=== PATIENT | male | born 1950 | race Caucasian/White ===

== ENCOUNTER 2017-08-25 18:04 | Emergency (ER) | payer MEDICARE, SELFPAY ==
[2017-08-25 18:05] VITALS: BP 120/77; PULSE 94; RESP 16; TEMP 37.1; O2SAT 98; BMI 24.1
--- NOTE | 2017-08-25 18:18 | ED.RN ---
Pt refused to go back to room after being triaged, stated he needed to go out and smoke. Pt returned approx 15 min later, taken to room at that time.
--- NOTE | 2017-08-25 18:56 | ED.DCSUM_ITS ---
- ER Visit Summary Date of Service: 08/25/17 Chief Complaint: Neck abscess History of Present Illness: The patient is a 67 M with spontaneous onset of a tender swollen area on the right side of his neck about 2 weeks ago, it spontaneously ruptured about 1 week ago has been draining pus ever since. He saw his doctor at the [facility] yesterday, and yesterday, was started on Bactrim. Cultures were taken but no other intervention was performed in the office, culture returned showing group A strep heavy growth; gram-positive cocci moderate growth. He was called by his doctor advised to go to the ER for a different antibiotic prescription. He denies any fevers or systemic symptoms. He has a history of psoriasis and is on Humira, but took his last dose about 5 or 6 weeks ago and has had none since. Physical Examination: Well-appearing in no distress, normal vital signs, afebrile. Ambulatory. Full range of motion of the neck without difficulty. There is a fairly large abscess about 6 cm in diameter on the right posterior aspect of his mid neck, and it is open in an area more superior than centrally, draining purulent material actively. It is erythematous and tender. No subcutaneous emphysema palpable. Test Results: n/a Emergency Department Course and Treatment: Patient was amenable to full incision and drainage. After locally anesthetizing with 8 cc of plain 1% lidocaine, I removed a large purulent plug from the area that was opened, revealing a decent sized hole about 1 cm in diameter. I probed and deloculated the entire area, and irrigated it with 120 cc of saline. It was a large cavity , so I packed it with quarter inch sterile gauze and dressed with bacitracin. I advised that he remove this in 48 hours or so. He is welcome to return for worsening. Otherwise follow-up with PCP for wound reevaluation. He was given Ancef 1 g IM here Treatment Plan: Keflex 500 mg 4 times daily ?10 days, continue Bactrim as prescribed since I do not know if the gram-positive cocci that are moderate in growth are in clusters or chains, advised to follow-up with PCP regarding final culture and sensitivity results. Disposition: Discharge home Impression: Right neck cutaneous abscess Complex incision and drainage This note was generated with [employer] dictation software. It may contain incorrect words, spelling, and punctuation that were not noted in review of the chart prior to signing ED Disposition - Plan for ED Patient: Disposition: Home or Assisted Living Chief Complaint: Abscess Instructions: ED Abscess IandD Prescriptions: Cephalexin [Keflex] 500 mg PO Q6 #40 cap [facility] [Primary [facility] Provider] - 3-5 Days Additional Instructions: Remove packing and discard in approximately 2 days. Continue to change dressing as needed as it gets dirty/soaked. Redressed with antibiotic ointment. Take both antibiotics as prescribed until finished. [facility] regarding final culture results and sensitivities, which are not back yet.
== END 2017-08-25 21:16 | disposition home or self-care (01) ==
PROVIDERS: Emergency Provider Emergency Medicine
DX: L02.11 Cutaneous abscess of neck (principal); B95.0 Streptococcus, group A, as the cause of diseases classified elsewhere; L40.9 Psoriasis, unspecified; Z79.899 Other long term (current) drug therapy; Z72.0 Tobacco use
CPT/HCPCS: 10060; 99282

== ENCOUNTER 2017-12-23 13:52 | Emergency (ER) | payer MEDICARE, SELFPAY ==
[2017-12-23 13:53] VITALS: BP 150/98; PULSE 94; RESP 18; TEMP 36.5; O2SAT 96; BMI 24.1
[2017-12-23] MEDS: LORazepam 1 MG Tablet PO (14:43)
--- NOTE | 2017-12-23 15:00 | ED.VISSUMM ---
- ER Visit Summary Date of Service: 12/23/17 Chief Complaint: [] alcohol Abuse History of Present Illness: The patient is a 67 M [] history of alcohol abuse for years [facility], he indicates he drinks about 18 beers a day just had a few drinks before coming to the emergency department, indicates she spoke with the [facility] and he is scheduled to go through your detox system and be detoxed on Monday however he does not wish to wait that long so he came to [facility] seeking detox options. No fever no cough no chest pain no paresthesias he denies any other complaints or symptoms no homicidal suicidal ideation lives alone at home Physical Examination: [] Vital signs are within normal range she is awake and alert there is no obvious signs of gross intoxication his mental status is normal he can answer questions appropriately his speech is normal his neck is supple his lungs are clear heart tones are normal the abdomen soft nontender upper lower extremities remarkable full range of motion there is no tremor no mental cloudiness awake and alert is awake and alert walking around the department in no distress Test Results: [] Emergency Department Course and Treatment: [] Conversation with the patient and he expressed frustration at the [facility] for making him wait till Monday I explained to him that I had no authority over the [facility] if that was the soonest he could get a detox bed he would need to have those conversations with the [facility] we discussed inpatient options elsewhere he has to [facility] insurance and per our administrative staff he would require transfer to that facility, however he declined that he did not wish to be transferred, he was agreeable to going home and calling the [facility] for further detox options otherwise follow with up with them on Monday he was given 1 mg of Ativan p.o. here Treatment Plan: [] Disposition: [] Home stable refused transfer to [facility] Impression: [] Alcohol abuse seeking detox options This note was generated with [employer] dictation software. It may contain incorrect words, spelling, and punctuation that were not noted in review of the chart prior to signing ED Disposition - Plan for ED Patient: Chief Complaint: ETOH Intox Instructions: ED Alcohol Intoxication, ED Alcohol Abuse Referrals: [facility] [Primary Care Provider] - Additional Instructions: Call the [facility] to discuss detox options
--- NOTE | 2017-12-23 15:03 | ED.DCSUM_ITS ---
- ER Visit Summary Date of Service: 12/23/17 Chief Complaint: [] alcohol Abuse History of Present Illness: The patient is a 67 M [] history of alcohol abuse for years he [facility], he indicates he drinks about 18 beers a day just had a few drinks before coming to the emergency department, indicates she spoke with the [facility] and he is scheduled to go through your detox system and be detoxed on Monday however he does not wish to wait that long so he came to [facility] seeking detox options. No fever no cough no chest pain no paresthesias he denies any other complaints or symptoms no homicidal suicidal ideation lives alone at home Physical Examination: [] Vital signs are within normal range she is awake and alert there is no obvious signs of gross intoxication his mental status is normal he can answer questions appropriately his speech is normal his neck is supple his lungs are clear heart tones are normal the abdomen soft nontender upper lower extremities remarkable full range of motion there is no tremor no mental cloudiness awake and alert is awake and alert walking around the department in no distress Test Results: [] Emergency Department Course and Treatment: [] Conversation with the patient and he expressed frustration at the [facility] for making him wait till Monday I explained to him that I had no authority over the [facility] if that was the soonest he could get a detox bed he would need to have those conversations with the [facility] we discussed inpatient options elsewhere he has to [facility] insurance and per our administrative staff he would require transfer to that facility, however he declined that he did not wish to be transferred, he was agreeable to going home and calling the [facility] for further detox options otherwise follow with up with them on Monday he was given 1 mg of Ativan p.o. here Treatment Plan: [] Disposition: [] Home stable refused transfer to [facility] Impression: [] Alcohol abuse seeking detox options This note was generated with [employer] dictation software. It may contain incorrect words, spelling, and punctuation that were not noted in review of the chart prior to signing ED Disposition - Plan for ED Patient: Chief Complaint: ETOH Intox Instructions: ED Alcohol Intoxication, ED Alcohol Abuse Referrals: [facility] [Primary Care Provider] - Additional Instructions: Call the [facility] to discuss detox options
[2017-12-23 15:21] VITALS: BP 133/91; PULSE 83; RESP 18; O2SAT 98
--- NOTE | 2017-12-23 15:22 | ED.RN ---
states unable to write ativan script for wknd
== END 2017-12-23 15:22 | disposition home or self-care (01) ==
LOC: ED 14:23
PROVIDERS: Emergency Provider Emergency Medicine
DX: F10.10 Alcohol abuse, uncomplicated (principal); Y90.9 Presence of alcohol in blood, level not specified; Z60.2 Problems related to living alone
CPT/HCPCS: 99284

== ENCOUNTER 2019-02-23 17:30 | Inpatient (IN) | payer MEDICARE, OTHER, SELFPAY ==
[2019-02-23] VITALS (8 sets, daily range): BP systolic 109–138; BP diastolic 67–97; PULSE 82–95; RESP 16–22; TEMP 36.6–37.5; O2SAT 95–99; BMI 24.6; BMI 23.7
--- NOTE | 2019-02-23 18:09 | EKG12_ITS ---
Test Reason : Blood Pressure : / mmHG Vent. Rate : 083 BPM Atrial Rate : 083 BPM P-R Int : 166 ms QRS Dur : 082 ms QT Int : 414 ms P-R-T Axes : 058 021 041 degrees QTc Int : 486 ms Sinus rhythm with Premature atrial complexes Prolonged QT Abnormal ECG Confirmed by DOROTHEA STOCKTON, BRADY ([id number]), health editor LYNDSEY MIN ([id number]) on 02/25/2019 11:40:49 AM Referred By: TODD Confirmed By:BRADY PIEDRA MD
--- NOTE | 2019-02-23 18:10 | CT_ITS ---
STUDY: CT ABDOMEN AND PELVIS WITH CONTRAST REASON FOR EXAM: Male, 68 years old. Fall and unresponsive RADIATION DOSAGE (If Supplied By Facility): CTDIvol = ( 13.62 ) mGy, DLP = ( 1096.57 ) mGycm TECHNIQUE: Transaxial images were obtained from the dome of the diaphragm to the symphysis pubis without oral contrast. 100ML IV Isovue 300 was administered. Sagittal and coronal images were reconstructed. Individualized dose optimization techniques were used for this CT. COMPARISON: None. FINDINGS: The visualized lung bases are unremarkable. The visualized portions of the heart are within normal limits. Normal liver. Normal gallbladder and extrahepatic biliary system. Normal spleen. Normal pancreas. Normal bilateral adrenal glands. Normal right kidney. Normal left kidney. Normal visualized stomach. Normal small intestine. There are multiple colonic diverticula consistent with diverticulosis. There is non-visualization of the appendix. Normal abdominal aorta. Normal inferior vena cava. Normal retroperitoneum. Normal urinary bladder. Prostatomegaly and prostate calcifications. Normal abdominal wall. Normal osseous structures. CT/Abdomen/Pelvis WITH Contrast IMPRESSION: No CT evidence of acute injury involving the abdomen or pelvis. Electronically Signed: Papito Ruiz MD at 20:03 EDT Tel , Service support ,
--- NOTE | 2019-02-23 18:10 | CT_ITS ---
STUDY: CT BRAIN WITHOUT CONTRAST REASON FOR EXAM: Male, 68 years old. Agonal breathing after fall. Patient was unresponsive with evidence for closed head injury. RADIATION DOSAGE (If Supplied By Facility): CTDIvol = ( 44.99 ) mGy, DLP = ( 863.60 ) mGycm TECHNIQUE: Transaxial CT imaging of the brain was performed without administration of intravenous contrast material. Multiplanar reformations are submitted for interpretation. Individualized dose optimization techniques were used for this CT. COMPARISON: No relevant priors. FINDINGS: Normal soft tissue structures. Normal calvarium. There is mild cerebral atrophy with widening of the extra-axial spaces and ventricular dilatation. Normal white matter tracts of the cerebral hemispheres. Normal basal ganglia and thalami. Normal brainstem. There is mild cerebellar atrophy. There is no intracranial hemorrhage. There is minimal atherosclerotic calcification of the intracranial arteries. Normal visualized paranasal sinuses. CT/Brain/Head without Contrast IMPRESSION: No CT evidence of acute intracranial hemorrhage. Electronically Signed: Susanna Mason MD at 20:46 EDT , Service support ,
--- NOTE | 2019-02-23 18:10 | CT_ITS ---
STUDY: CT CERVICAL SPINE WITHOUT CONTRAST REASON FOR EXAM: Male, 68 years old. Patient was found unresponsive after fall and closed head injury. RADIATION DOSAGE (If Supplied By Facility): CTDIvol = ( 25.36 ) mGy, DLP = ( 581.20 ) mGycm TECHNIQUE: High resolution transaxial imaging was performed without contrast material. Sagittal and coronal images were reconstructed. Individualized dose optimization techniques were used for this CT. COMPARISON: Prior comparison studies are not available for review at this time. FINDINGS: Normal craniovertebral junction. There are degenerative changes of the anterior atlantoaxial articulation. Normal odontoid process. Normal cervical lordosis. The cervical and imaged thoracic vertebral bodies have normal height and alignment. C2-3: Normal endplates. Normal disc height and morphology. Normal central canal and intervertebral neuroforamina. C3-4: Normal endplates. Normal disc height and morphology. Normal central canal and intervertebral neuroforamina. C4-5: There is narrowing of this disc space with small endplate osteophytes. A small amount of gas in the epidural space. This is probably related to vacuum disc phenomenon. There is severe left-sided neural foraminal narrowing and mild right-sided neural foraminal narrowing with uncovertebral joint hypertrophy. There is no significant central acquired canal stenosis. C5-6: There is narrowing of the disc spaces small endplate osteophytes. There is a disc bulge and osteophyte complex. There is severe bilateral neural foraminal narrowing with uncovertebral facet joint arthropathy, left worse than right. There is mild central acquired canal stenosis. C6-7: There is narrowing of the disc spaces small endplate osteophytes. There is moderate bilateral neural foraminal narrowing with uncovertebral joint hypertrophy. There is mild central acquired canal stenosis. C7-T1: Normal endplates. Normal disc height and morphology. Normal central canal and intervertebral neuroforamina. Normal visualized soft tissue structures. CT/Spine Cervical without Contras IMPRESSION: 1. No CT evidence of acute compression or displaced fracture. 2. Multilevel degenerative disc disease and degenerative arthropathy of the cervical spine with neural foraminal narrowing and acquired canal stenosis, as described. Electronically Signed: Susanna Mason MD at 20:50 EDT , Service support ,
--- NOTE | 2019-02-23 18:13 | NURSING ---
NO OLD EKGS
[2019-02-23] MEDS: MethylPREDNISolone 125 MG/2 ML Vial IV (18:43)
[2019-02-23] MEDS: Diphth,Pertuss(Acell),Tet Vac 0.5 ML Vial IM (18:43)
[2019-02-23] MEDS: DiphenhydrAMINE 50 MG/ML Syringe 25 MG IV (18:43)
[2019-02-23 18:48] LABS: Absolute Neutrophil Count 3.4 X10^3/uL (2.0-7.7); Basophil# 0.04 X10^3/uL; Basophil% 0.8 % (0-1); Eosinophil# 0.05 X10^3/uL; Hematocrit 43.1 % (40-54); Hemoglobin 15.4 g/dL (13.0-16.5); Lymphocyte % 21.1 % (19-41); Mean Corp Hgb Conc 35.7 g/dL (32-36); Mean Corpuscular Volume 92.5 fL (80-94); Mean Platelet Vol. 8.8 fl (6.2-12.0); Monocyte# 0.57 X10^3/uL; Monocyte% 10.9 % (0-10); NRBC Flagged by Analyzer 0 % (0-5); Neutrophil # 3.44 X10^3/uL (2.7-7.7); Neutrophil % 65.8 % (47-70); Platelet Count 248 K/mm3 (150-450); RBC Distribution Width CV 11.9 % (11.6-14.6); RBC Distribution Width SD 40.3 fl (35.1-43.9); Red Blood Count 4.66 M/mm3 (4.6-6.2); White Blood Count 5.2 K/mm3 (4.4-11.0)
[2019-02-23 18:50] LABS: International Normalized Ratio 1.1; Prothrombin Time (Protime)PT. 13.7 SECONDS (11.7-14.9)
[2019-02-23 18:51] LABS: Partial Thromboplast Time 24.8 Seconds (24.1-36.2)
[2019-02-23 19:00] LABS: Anion Gap 8 (5-15); BUN 9 mg/dL (7-18); BUN/Creat Ratio 10.5 RATIO (10-20); Calcium,Total 8.2 mg/dL (8.5-10.1); Chloride 109 mmol/L (98-107); Creatinine, Serum 0.86 mg/dL (0.70-1.30); EST Glomerular Filtration Rate 94 mL/min (>60); Est Glom Filt Rate - Afr Amer 114 mL/min (>60); Glucose 91 mg/dL (74-106); Sodium Level 142 mmol/L (136-145)
[2019-02-23 19:31] LABS: Allen Test POS; Base Excess -9 mmol/L (-2 to +2); Blood Gas Specimen Type ART; O2 Delivery Device Room Air; PO2 90 mmHG (75-100); SITE L Radial; SO2 96 % (95-99); Total Carbon Dioxide 18 mmol/L; pCO2 33.3 mmHg (35-45); pH 7.32 (7.35-7.45)
--- NOTE | 2019-02-23 20:03 | ED.RN ---
TRAM MASON CALLED IN AT THIS TIME. 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 PATIENT LIVES WITH MOTHER AND ONLY CARES FOR HER. TRAM BHAT DID WELFARE CHECK AND MOTHER IS FINE AND WELL TAKEN CARE OF. CONCERN SHE HAS DEMENTIA AND FALLS FREQUENTLY. TRAM BHAT ASKING THAT SOME ONE CALLS EITHER TRAM BHAT OR POLICE TO DO WELFARE CHECK IN AM IF PATIENT IS ADMITTED. SOCIAL WORK TO BE CALLING NEPHEW AT THIS TIME TO SEE IF HE IS CURRENTLY STAYING WITH HER.
--- NOTE | 2019-02-23 20:15 | ED.DCSUM_ITS ---
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 He states he was walking to the store to buy more beer. He states he passed out. When squad arrived he was unresponsive and had agonal breathing. He was placed in a c- collar and backboarded. He has no recall. He does not recall if he had chest pain, shortness of breath, nausea etc. Prior similar symptoms: No Recent Illness/Hospitalization: No - Past Medical History (1) Alcoholism Status: Acute Past Medical History - Allergies and Home Meds Allergies/Adverse Reactions: Allergies iodine Allergy (Verified 02/23/19 17:35) [place] [facility]] - Prior records reviewed: Yes Surgical History: noncontributory Lives: Alone Smoking Status: Current every day smoker Alcohol: Heavy Drugs: None Review of Systems General: Denies: Chills, Fever, Sweats Eyes: Denies: Visual changes - bilaterally, Blurred Vision - bilaterally, Diplopia ENT: Denies: Left ear pain, Right ear pain, Rhinorrhea, Sore throat Cardiovascular: Denies: Chest pain, Palpitations Respiratory: Denies: Dyspnea, Cough, Dyspnea on exertion Gastrointestinal: Denies: Abdominal pain, Nausea, Vomiting, Diarrhea, Melena, Hematochezia Genitourinary: Denies: Dysuria, Hematuria, Frequency Musculoskeletal: Denies: Myalgias, Arthralgias, Neck pain, Back pain, Swelling, Extremity Pain Skin: Reports: Abrasions, Wounds. Denies: Rash, Abscess Neurological: Denies: Headache, Weakness, Numbness Endocrine: Denies: Polyuria Hematologic: Denies: Easy bruising, Easy bleeding Physical Exam Vital Signs/Narrative: Vital Signs Temp Pulse Resp BP Pulse Ox 02/23/19 20:11 85 18 122/67 H 98 02/23/19 19:05 18 02/23/19 18:58 85 20 H 127/97 H 98 02/23/19 17:38 97.8 F 08/24/19 17:31 98.7 F 82 17 109/76 98 Inital Vital Signs reviewed: Yes General: Well nourished, Well developed, No Acute Distress Head: Normocephalic, Trauma, Tenderness - Bridge of nose, - - Clinical findings of basal skull fracture. Eyes: Perrl, EOMI, - - Subconjunctival hemorrhage. Negative for: Pale conjunctiva, Scleral icterus ENT: Moist mucous membranes, No rhinorrhea, TM's clear, - - She does have avulsion of tissue bridge of the nose. There is no laceration or anything that can be repaired.. Negative for: Dry mucous membranes, Nasal congestion, Sinus tenderness Neck: Nontender, No lymphadenopathy, No JVD, - - Remained in collar since he is inebriated Cardiovascular: Regular rate, Regular rhythm, No murmurs, Normal S1, Normal S2 Respiratory: No distress, CTA bilaterally, Chest nontender Abdomen: Soft, Nondistended, Normal bowel sounds, Tender Rectal: Deferred Back: Nontender, Normal Inspection. Negative for: CVA tenderness, Spinal tenderness Extremities: No edema Skin: Normal color, Cyanosis, Trauma. Negative for: Diaphoresis, Jaundice, No Trauma Neurological: Alert, Oriented x3, Cranial nerves II-XII grossly intact, Normal Strength, Normal Sensation, Normal DTR Psychological: Normal affect Diagnostic/Tx/Re-eval Impressions Abdomen/Pelvis CT 02/23/19 18:10 IMPRESSION: No CT evidence of acute injury involving the abdomen or pelvis. Electronically Signed: Papito Ruiz MD at 20:03 EDT Tel , Service support , Brain CT 02/23/19 18:10 IMPRESSION: No CT evidence of acute intracranial hemorrhage. Electronically Signed: Susanna Mason MD at 20:46 EDT , Service support , Cervical Spine CT 02/23/19 18:10 IMPRESSION: 1. No CT evidence of acute compression or displaced fracture. 2. Multilevel degenerative disc disease and degenerative arthropathy of the cervical spine with neural foraminal narrowing and acquired canal stenosis, as described. Electronically Signed: Susanna Mason MD at 20:50 EDT , Service support , 02/23/19 18:10 Abdomen/Pelvis WITH Contrast [CT] Stat Brain/Head without Contrast [CT] Stat Spine Cervical without Contras [CT] Stat Laboratory Results 02/23/19 02/23/19 02/23/19 18:09 18:30 18:30 WBC 5.2 RBC 4.66 Hgb 15.4 Hct 43.1 MCV 92.5 MCH 33.0 H MCHC 35.7 RDW Std Deviation 40.3 RDW Coeff of Rachel 11.9 Plt Count 248 MPV 8.8 Immature Gran % (Auto) 0.400 Neut % (Auto) 65.8 Lymph % (Auto) 21.1 Crittenden % (Auto) 10.9 H Eos % (Auto) 1.0 Baso % (Auto) 0.8 Absolute Neuts (auto) 3.4 Absolute Lymphs (auto) 1.10 Nucleated RBC % 0 PT 13.7 INR 1.1 APTT 24.8 Specimen Type Sample Site pH Bicarbonate Actual POC Total CO2 Base Excess O2 Saturation ABG pCO2 ABG pO2 Xiang Test O2 Delivery Device Blood Gas Notified Whom Sodium Potassium Chloride Carbon Dioxide Anion Gap BUN Creatinine Estim Creat Clear Calc Est GFR (MDRD) Af Amer Est GFR (MDRD) Non-Af BUN/Creatinine Ratio Glucose Calcium Ethyl Alcohol 297.0 02/23/19 02/23/19 18:30 19:24 WBC RBC Hgb Hct MCV MCH MCHC RDW Std Deviation RDW Coeff of Rachel Plt Count MPV Immature Gran % (Auto) Neut % (Auto) Lymph % (Auto) Crittenden % (Auto) Eos % (Auto) Baso % (Auto) Absolute Neuts (auto) Absolute Lymphs (auto) Nucleated RBC % PT INR APTT Specimen Type ART Sample Site L Radial pH 7.32 L Bicarbonate Actual 17.0 L POC Total CO2 18 Base Excess -9 L O2 Saturation 96 ABG pCO2 33.3 L ABG pO2 90 Xiang Test POS O2 Delivery Device Room Air Blood Gas Notified Whom ED Sodium 142 Potassium 4.0 Chloride 109 H Carbon Dioxide 25.0 Anion Gap 8 BUN 9 Creatinine 0.86 Estim Creat Clear Calc 94.20 Est GFR (MDRD) Af Amer 114 Est GFR (MDRD) Non-Af 94 BUN/Creatinine Ratio 10.5 Glucose 91 Calcium 8.2 L Ethyl Alcohol Patient's blood work reveals a metabolic acidosis. CAT scan indicates no intracranial or intra-abdominal pathology. Cervical spine reveals degenerative changes. Patient will require medical admission to evaluate his syncopal episode with agonal breathing. Will contact lab regarding ethanol level. I was informed by Yara, lab personnel, that his alcohol level is 297. Would not expect an alcohol level of 297 to be the cause of his syncope and agonal respirations. - Medical Decision Making Per patient's history he had a syncopal episode with walking. Because he fell hit his face in an inebriated CT of the head was obtained as well as CT of the C-spine. Because he complained of abdominal discomfort to evaluate for hepatic and splenic injury CT of the abdomen and pelvis with IV contrast was obtained. Appropriate blood work was ordered as well. Patient's blood gas reveals a metabolic acidosis with no AA gradient. If there is no intracranial trauma, cervical spine injury or intra-abdominal injury will contact hospitalist for medical admission for syncope with respiratory failure Trauma, metabolic and medical work-up was undertaken to determine cause of patient's syncopal episode. Is no evidence of traumatic injury. Hospitalist has been paged for admission. Patient is intoxicated. Patient was reexamined at 210. He has no cervical spine tenderness. Has full active range of motion. He is alert and oriented. His speech is not slurred. Even though he is legally intoxicated clinically he is alert and oriented. - Critical Care Time Critical care time (excluding procedures): 30-74 minutes, Discussing w/Patient &/or Family/Procurement Internship, Discussing w/Consultants, Arranging Admission or Transfer ED Disposition - Plan for ED Patient: Disposition: Acute Care Hospital [facility] Diagnosis: Syncope and collapse, Agonal respiration, Alcohol intoxication, Avulsion of skin of face [facility]errals: [facility] [Primary Care Provider] -
--- NOTE | 2019-02-23 20:30 | CM.ED ---
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 Patient unsure who will be caring for patient mother at this time. Police department did do a wellness check and state that patient mother is doing well at this time, both patient mother and patient home are well kept per police. Patient agreeable to this case management social worker contacting patient nephew, Baldemar. Telephone call to Baldemar. Baldemar stating to now be with patient mother and to be planning to stay with patient mother until patient is ready for discharge. Baldemar stating to also be able to provide transportation to home for patient when patient is discharged. Updated nursing staff on above information. Ben Diego JAVA SOFTWARE ENGINEER, IAN
--- NOTE | 2019-02-23 21:06 | PCM.HP.STD ---
Problem List (1) Alcoholism Status: Chronic (2) Syncope and collapse Status: Acute (3) Agonal respiration Status: Acute (4) Alcohol intoxication Status: Acute (5) Avulsion of skin of face Status: Acute History of Present Illness Date of Admission: 02/23/19 Chief Complaint: syncope and collapse The patient is a 68 year old M with a significant history of alcoholism and psoriasis who presented to the emergency department because of syncope and fall. Reportedly patient was returning from a drive-through after buying some more alcohol/was going to buy some alcohol. He passed out and fell. Per paramedics patient was in agonal respiration. Patient reports that he thinks he passed out because he was drunk. At the emergency department his alcohol level was 297. The emergency department cervical spine CT; brain CT; abdomen and pelvis CT did not show any acute disease . Because patient reported allergy to contrast dye he was pretreated before CT with contrast. Because he sustained lacerations on his face after falling he was given a tetanus shot at the emergency department. Past Medical History Past Medical History (Chronic Problems): Chronic Problems (Last Updated 02/23/19 @ 21:53 by Tanvir Hammonds MD) Alcoholism (Chronic) Medical History: Medical History (Last Reviewed 02/24/19 @ 03:55 by Tanvir Hammonds MD) Alcoholism F10.20 Allergies iodine Allergy (Verified 02/23/19 17:35) Hives Home Medications: Ambulatory Orders Medication Instructions Recorded Apremilast [Otezla] 30 mg PO DAILY 02/23/19 Surgical History: appendectomy, tonsillectomy Lives: Alone Smoking Status: Current every day smoker Alcohol: Heavy Drugs: None, Marijuana - *Family History Maternal History Items: - - Denies any maternal medical history Paternal History Items: - - Denies any pertinent medical history Review of Systems Constitutional: Denies: Chills, Fever, Weight Change HEENT: Reports: Nasal Congestion. Denies: Head Aches, Sinus Congestion, Sinus Drainage Cardiovascular: Denies: Chest Pain, Palpitations Respiratory: Denies: Cough, Shortness of breath at rest, Sputum production Gastrointestinal: Denies: Abdominal Pain, Nausea, Vomiting Genitourinary: Denies: Dysuria Musculoskeletal: Reports: Neck Pain Skin: Denies: Rash, Wounds Neurological: Denies: Numbness, Tingling, Focal weakness Psychiatric: Denies: Anxiety, Depression, Homicidal Ideations, Suicidal Ideations Hematologic/ Lymphatic: Denies: Easy Bruising, Easy Bleeding VTE Information - Inpt Only VTE Present on Admission: No VTE Mechan Device Prophylaxis: SCD's VTE Pharm Prophylaxis ordered?: No Patient Problems: Active and Suspected Problems (Last Updated 02/23/19 @ 21:53 by Tanvir Hammonds MD) Syncope and collapse (Acute) Agonal respiration (Acute) Alcohol intoxication (Acute) Avulsion of skin of face (Acute) - Physical Exam General: Alert, Oriented x3, Cooperative HEENT: Normocephalic, - - Laceration on nasal bridge and other places of face Neck: Supple, No JVD, Negative Carotid Bruits Lungs: Clear to auscultation, Normal air movement Cardiovascular: Regular rate, No murmurs Abdomen: Bowel Sounds Present, Soft, Non Tender Extremities: No edema, Capillary Refill Less than 3 Seconds Skin: - - Laceration on nasal bridge and on other areas of face Musculoskeletal: No Tenderness to Palpation of Joints or Extremities Neurological: Cranial nerves II-XII grossly intact Psych/Mental Status: Normal Affect, Appropriate Vital Signs Temp Pulse Resp BP Pulse Ox 97.8 F 85 18 122/67 H 98 02/23/19 17:38 02/23/19 20:11 02/23/19 20:11 02/23/19 20:11 02/23/19 20:11 Oxygen Delivery Method Room Air Weight: 84.8 kg Body Mass Index (BMI) 24.6 Intake and Output for Last 24 Hours 02/21/19 02/22/19 02/23/19 23:59 23:59 23:59 Intake Total Balance Laboratory Tests Past 24 Hrs 02/23/19 02/23/19 02/23/19 18:09 18:30 18:30 WBC 5.2 RBC 4.66 Hgb 15.4 Hct 43.1 MCV 92.5 MCH 33.0 H MCHC 35.7 RDW Std Deviation 40.3 RDW Coeff of Rachel 11.9 Plt Count 248 MPV 8.8 Immature Gran % (Auto) 0.400 Neut % (Auto) 65.8 Lymph % (Auto) 21.1 Jessamine % (Auto) 10.9 H Eos % (Auto) 1.0 Baso % (Auto) 0.8 Absolute Neuts (auto) 3.4 Absolute Lymphs (auto) 1.10 Nucleated RBC % 0 PT 13.7 INR 1.1 APTT 24.8 Specimen Type Sample Site pH Bicarbonate Actual POC Total CO2 Base Excess O2 Saturation ABG pCO2 ABG pO2 Xiang Test O2 Delivery Device Blood Gas Notified Whom Sodium Potassium Chloride Carbon Dioxide Anion Gap BUN Creatinine Estim Creat Clear Calc Est GFR (MDRD) Af Amer Est GFR (MDRD) Non-Af BUN/Creatinine Ratio Glucose Calcium Ethyl Alcohol 297.0 02/23/19 02/23/19 18:30 19:24 WBC RBC Hgb Hct MCV MCH MCHC RDW Std Deviation RDW Coeff of Rachel Plt Count MPV Immature Gran % (Auto) Neut % (Auto) Lymph % (Auto) Jessamine % (Auto) Eos % (Auto) Baso % (Auto) Absolute Neuts (auto) Absolute Lymphs (auto) Nucleated RBC % PT INR APTT Specimen Type ART Sample Site L Radial pH 7.32 L Bicarbonate Actual 17.0 L POC Total CO2 18 Base Excess -9 L O2 Saturation 96 ABG pCO2 33.3 L ABG pO2 90 Xiang Test POS O2 Delivery Device Room Air Blood Gas Notified Whom ED Sodium 142 Potassium 4.0 Chloride 109 H Carbon Dioxide 25.0 Anion Gap 8 BUN 9 Creatinine 0.86 Estim Creat Clear Calc 94.20 Est GFR (MDRD) Af Amer 114 Est GFR (MDRD) Non-Af 94 BUN/Creatinine Ratio 10.5 Glucose 91 Calcium 8.2 L Ethyl Alcohol Assessment/Plan All Active Problems (Last Updated 02/23/19 @ 21:53 by Tanvir Hammonds MD) Syncope and collapse (Acute) Agonal respiration (Acute) Alcohol intoxication (Acute) Avulsion of skin of face (Acute) The patient is a 68 year old M with a significant history of alcoholism and psoriasis who presented to the emergency department because of syncope and fall secondary to probable alcoholism. Syncope and collapse Likely secondary to alcohol intoxication Will put patient on telemetry pressure as patient has a prolonged QTC of 486. Check magnesium level. Alcohol dependence and withdrawal Was in the emergency department patient reported that patient began to shake and he feels like he is withdrawing from alcohol. [facility] the [facility] We will put patient on CIWA protocol with thiamine; folic acid; Librium and as needed Ativan. Of note patient has allergy to iodine so multivitamins were not started. Laceration of face Bactroban ordered Nasal congestion Patient reports nasal congestion and is asking for decongestant. Will start patient on Flonase. Psoriasis Otezla Continued Report that previously he was on Humira but because of his drinking habits Humira was stopped. DVT prophylaxis SCD Code Visit Inpatient E&M: 56681 Init Hosp L3
[2019-02-23 21:50] LABS: Bacteria 0 SEEN /hpf (None Seen); Mucous, Urine 0 SEEN /hpf (<or=2+); Red Blood Cells-Urine 0 SEEN /hpf (0-5); White Blood Cells 0 SEEN /hpf (0-5)
[2019-02-23 21:53] LABS: Color, Urine Yellow (Yellow); Glucose, Dipstick Normal (Normal); Ketone-Dipstick 5 mg/dl (Negative); Leukocyte Esterase-Dipstick Negative /ul (Negative); Nitrite-Dipstick Negative (Negative); Occult Blood-Urine Negative /ul (Negative); Protein-Dipstick Negative (Negative); Urine Bilirubin Dipstick Negative (Negative); Urine Clarity Clear (Clear); Urine Urobilinogen Normal (Normal)
[2019-02-23 21:56] LABS: Albumin, Serum 3.8 g/dL (3.2-5.0); Magnesium 2.3 mg/dL (1.6-2.6)
[2019-02-23 22:27] LABS: Squamous Epithelial Cells - UA 0-5 SEEN /hpf (0-5)
[2019-02-24 01:50] VITALS: BP 130/68; PULSE 101; RESP 16; TEMP 37.1; O2SAT 95
[2019-02-24 03:00] VITALS: PULSE 49; PULSE 95
[2019-02-24 05:26] VITALS: BP 165/75; PULSE 73; RESP 16; TEMP 36.9; O2SAT 95
[2019-02-24] MEDS: LORazepam 1 MG Tablet 2 MG PO (05:30)
[2019-02-24 07:05] VITALS: PULSE 94
--- NOTE | 2019-02-24 08:11 | PCM.PN.HOSP ---
Patient Problems: Active and Suspected Problems (Last Reviewed 02/24/19 @ 03:55 by Tanvir Hammonds MD) Syncope and collapse (Acute) Agonal respiration (Acute) Alcohol intoxication (Acute) Avulsion of skin of face (Acute) Subjective: Multiple lacerations to his face. States that he would like to quit drinking. Denies any cardiac history and says that he has had a stress test in the past for what sounds like a PAC which was normal Vitals/I&O's: Vital Signs Temp Pulse Resp BP Pulse Ox 98.4 F 73 16 165/75 H 95 02/24/19 05:26 02/24/19 05:26 02/24/19 05:26 02/24/19 05:26 02/24/19 05:26 Oxygen Delivery Method Room Air Weight: 179 lb 14.355 oz Body Mass Index (BMI) 23.7 Finger Stick Blood Glucose 91 Intake and Output for Last 24 Hours 02/22/19 02/23/19 02/24/19 23:59 23:59 23:59 Intake Total 1021.68 / 1021.68 600 / 600 Balance 1021.68 / 1021.68 600 / 600 General: Alert, Oriented x3, Cooperative, No apparent distress HEENT: PERRLA, EOMI, Normocephalic, - - Multiple facial laceration Oral: Dry Mucosa Neck: Supple, No JVD Lungs: Clear to auscultation, Normal air movement, No rhonchi, No wheeze, No rales Cardiovascular: Regular rate, Regular Rhythm, Normal S1, Normal S2, No murmurs Abdomen: Soft, Non Tender, Non-Distended, No Hepato-splenomegaly Extremities: No edema, Capillary Refill Less than 3 Seconds Skin: No rashes, No breakdown Neurological: Neuro grossly intact, Sensory exam intact to light touch and pain Psych/Mental Status: Normal Affect, Appropriate Laboratory Results 02/23/19 18:09: Ethyl Alcohol 297.0 02/23/19 18:30: WBC 5.2, RBC 4.66, Hgb 15.4, Hct 43.1, MCV 92.5, MCH 33.0 H, MCHC 35.7, RDW Std Deviation 40.3, RDW Coeff of Rachel 11.9, Plt Count 248, MPV 8.8, Immature Gran % (Auto) 0.400, Neut % (Auto) 65.8, Lymph % (Auto) 21.1, Alexander % (Auto) 10.9 H, Eos % (Auto) 1.0, Baso % (Auto) 0.8, Absolute Neuts (auto) 3.4, Absolute Lymphs (auto) 1.10, Nucleated RBC % 0 02/23/19 18:30: PT 13.7, INR 1.1, APTT 24.8 02/23/19 18:30: Sodium 142, Potassium 4.0, Chloride 109 H, Carbon Dioxide 25.0, Anion Gap 8, BUN 9, Creatinine 0.86, Estim Creat Clear Calc 94.20, Est GFR (MDRD) Af Amer 114, Est GFR (MDRD) Non-Af 94, BUN/Creatinine Ratio 10.5, Glucose 91, Calcium 8.2 L 02/23/19 19:24: Specimen Type ART, Sample Site L Radial, pH 7.32 L, Bicarbonate Actual 17.0 L, POC Total CO2 18, Base Excess -9 L, O2 Saturation 96, ABG pCO2 33.3 L, ABG pO2 90, Xiang Test POS, O2 Delivery Device Room Air, Blood Gas Notified Whom ED 02/23/19 21:35: Magnesium 2.3, Albumin 3.8 02/23/19 21:40: Urine Color Yellow, Urine Clarity Clear, Urine pH 5.0, Ur Specific Mc[place] 1.010, Urine Protein Negative, Urine Glucose (UA) Normal, Urine Ketones 5 H, Urine Occult Blood Negative, Urine Nitrite Negative, Urine Bilirubin Negative, Urine Urobilinogen Normal, Ur Leukocyte Esterase Negative, Urine RBC 0 SEEN, Urine WBC 0 SEEN, Ur Squamous Epith Cells 0-5 SEEN, Urine Bacteria 0 SEEN, Urine Mucus 0 SEEN Current Medications Acetaminophen (Tylenol) 650 mg PO Q6H PRN PRN PRN Reason: Mild Pain (scale 0-3)/T>100.7 Fluticasone Propionate (Flonase Nasal [place]) 1 spray NASAL BID [facility] Last Admin: 02/23/19 23:29 Dose: Not Given Documented by: Folic Acid (Folic Acid) 1 mg PO DAILY@0800 [facility] Stop: 02/26/19 08:01 Sodium Chloride () 250 mls @ 15 mls/hr IV .[id number] PRN PRN Reason: SALINE FLUSH Lorazepam (Ativan) 2 mg PO Q2H PRN PRN; Protocol PRN Reason: CIWA score > 8 but <15 Last Admin: 02/24/19 05:30 Dose: 2 mg Documented by: Lorazepam (Ativan) 2 mg PO UD PRN; Protocol PRN Reason: CIWA score >/=15. Lorazepam (Ativan) 2 mg IV Q2H PRN PRN; Protocol PRN Reason: CIWA score > 8 but <15 Lorazepam (Ativan) 2 mg IV UD PRN; Protocol PRN Reason: CIWA score >/=15. Mupirocin (Bactroban) 1 applic TOPICAL BID TIKA; Protocol Ondansetron HCl (Zofran) 4 mg IV Q8H PRN PRN PRN Reason: Nausea Sodium Chloride () 10 - 40 ml IV UD PRN PRN Reason: SALINE FLUSH Thiamine HCl (Vitamin B1) 100 mg PO BIDCM TIKA Stop: 02/26/19 17:01 Medical Necessity - Tobacco Use Smoking Status: Current every day smoker Tobacco Use: Cigarettes Assessment/Plan All Active Problems (Last Reviewed 02/24/19 @ 03:55 by Tanvir Hammonds MD) Syncope and collapse (Acute) Agonal respiration (Acute) Alcohol intoxication (Acute) Avulsion of skin of face (Acute) 1. Alcohol withdrawal/syncope secondary to acute alcohol intoxication with facial trauma -He would like to quit drinking therefore we will continue with alcohol withdrawal protocol -CT scans of his brain, cervical spine, and abdomen and pelvis were all negative for any acute trauma or fracture -Continue with topical Bactroban to the lacerations on his face -Lab work is negative, and telemetry has been unremarkable -He says that he does have a history of a cardiac pre-beat which sounds like a PAC and he says that he had a stress test at the [facility] which was normal. -Since he is likely to be here for multiple nights given his desire to quit drinking, will need to change him from an observation to an inpatient DVT: SCDs Code Visit Inpatient E&M: 14826 Subs Hosp L2
[2019-02-24] MEDS: Thiamine Hydrochloride 100 MG Tablet PO (09:00)
[2019-02-24] MEDS: Folic Acid 1 MG Tablet PO (09:00)
[2019-02-24] MEDS: Fluticasone 0.05% 1 SPRAY NASAL.SRY NASAL (09:00)
[2019-02-24 09:25] VITALS: BP 130/88; PULSE 99; RESP 20; TEMP 36.7; O2SAT 96
[2019-02-24 11:29] VITALS: PULSE 113
--- NOTE | 2019-02-24 12:00 | NURSING ---
patient wanting to be discharged. Contacted Dr. Chavez, but he feels with syncopal episode yesterday and alcohol withdrawal, it is not safe or in patient's best interest to be discharged. Discussed this with patient. Patient wanted option to leave against medical advice. Patient educated on leaving AMA, including that it is not in his best interest to leave and he could easily have an additional medical issues and that insurance may not pay bill. Patient appears unsteady when walking and when discussing this with patient, he states he is fine. Patient is Alert and oriented to person place and time. AMA papers signed by pt with this nurse as witness.
== END 2019-02-24 13:00 | disposition left against medical advice (07) | DRG 894 ==
LOC: ED 21:12 → PCU 22:48
PROVIDERS: Admitting Provider Hospitalist; Emergency Provider Emergency Medicine; Visit Provider Family Medicine
DX: F10.229 Alcohol dependence with intoxication, unspecified (principal); Y90.8 Blood alcohol level of 240 mg/100 ml or more; Z23 Encounter for immunization; S01.21XA Laceration without foreign body of nose, initial encounter; W19.XXXA Unspecified fall, initial encounter; F10.239 Alcohol dependence with withdrawal, unspecified; L40.9 Psoriasis, unspecified; S01.81XA Laceration without foreign body of other part of head, initial encounter; R55 Syncope and collapse
CPT/HCPCS: 36600; 70450; 72125; 74177; 80048; 80320; 81001; 82040; 82803; 83735; 85025; 85610; 85730; 90715; 93005; 99285; 99406; Q9967; A4216; G0480; J3490

== ENCOUNTER 2019-03-17 12:42 | Inpatient (IN) | payer MEDICARE, OTHER, SELFPAY ==
[2019-02-23 21:52] VITALS: BMI 23.7
[2019-03-17] VITALS (8 sets, daily range): BP systolic 120–186; BP diastolic 78–114; PULSE 85–100; RESP 18–20; TEMP 36.6–37.3; O2SAT 95–97; BMI 24.0; BMI 23.3; BMI 23.4
--- NOTE | 2019-03-17 12:51 | ED.RN ---
PT SAID HE STOPPED TAKING OTEZLA APPROX 2 WEEKS AGO.
--- NOTE | 2019-03-17 12:54 | NURSING ---
PT STATED HE HAS DRANK A 6 PACK SNCE 0530 THIS AM
--- NOTE | 2019-03-17 13:05 | ED.DCSUM_ITS ---
History of Present Illness Chief Complaint: Substance Abuse Informant: Patient Onset: Month(s) Maximum Severity: Mild Narrative: Patient has a long history of alcohol abuse indicates is been drinking Budweiser constantly for days he has been drunk for days, he has a history of chronic behavior such as the above he indicates he is chronically drunk, indicates he is tired of being drunk and he came to the hospital today with paramedics request ing that he go undergo alcohol detox, he denies any other past history he denies fever cough chest pain he was seen in the hospital last month he indicates he did not stay for the full detox therapy staying for 1 day only, instead of the 3 days, and he did not follow-up as instructed with outpatient detox services, Indicates he is willing to stay for as long as he takes get himself detoxed and is willing to follow-up with outpatient detox services Past Medical History - Allergies and Home Meds Allergies/Adverse Reactions: Allergies iodine Allergy (Verified 03/17/19 12:47) [place] Primary Care Physician: [place] [Primary [facility] Provider] - Past Medical History: - Surgical History: appendectomy, tonsillectomy Smoking Status: Current every day smoker - Family History Maternal Family History: Reports: - - Denies any maternal medical history Paternal Family History: Reports: - - Denies any pertinent medical history Review of Systems ROS: - As above General: Denies: Chills, Fever, Sweats Eyes: Denies: Visual changes - bilaterally, Diplopia ENT: Denies: Rhinorrhea, Sore throat Cardiovascular: Denies: Chest pain, Palpitations Respiratory: Denies: Dyspnea, Cough, Dyspnea on exertion Gastrointestinal: Denies: Abdominal pain, Nausea, Vomiting, Diarrhea, Melena, Hematochezia Genitourinary: Denies: Dysuria, Hematuria, Frequency Musculoskeletal: Denies: Back pain, Extremity Pain Skin: Denies: Rash, Wounds Neurological: Denies: Headache, Weakness, Numbness Physical Exam Vital Signs/Narrative: Vital Signs Temp Pulse Resp BP Pulse Ox 03/17/19 12:43 97.9 F 99 20 H 186/114 H 96 General: Well nourished, Well developed, No Acute Distress Head: Normocephalic, Atraumatic Eyes: Perrl, EOMI ENT: Moist mucous membranes, No rhinorrhea Neck: Supple, Nontender Cardiovascular: Regular rate, Regular rhythm, No murmurs Respiratory: No distress, CTA bilaterally, Chest nontender Abdomen: Soft, Nontender, Nondistended, Normal bowel sounds Back: Nontender, Normal Inspection Extremities: Nontender, No edema Skin: Normal color, No rash Neurological: Alert, Oriented x3, Cranial nerves II-XII grossly intact, Normal Strength, Normal Sensation Psychological: Normal affect, Normal Mood Diagnostic/Tx/Re-eval - Medical Decision Making Is resting comfortably in the bed he is in no distress has no physical complaints clinically he looks well he does smell of alcohol and seems slightly intoxicated clinically at this time and all the above we spoke with the hospital service they are willing to admit him for alcohol detox and further management, screen labs to be obtained is also been in the chart, he is awake he is alert he is answering questions appropriately with all 4 extremities and he has no complaints there is no signs of psychomotor agitation, no signs of withdrawal at this time and indicates again he was drinking just before the paramedics came Admit stable Impression final alcohol abuse requesting detox ED Disposition - Plan for ED Patient: [facility] -
--- NOTE | 2019-03-17 13:10 | HP.PCM_ITS ---
History of Present Illness Date of Admission: 03/17/19 Chief Complaint: alcohol withdrawal The patient is a 68 year old M [with a PMH of chronic alcohol and nicotine abuse. He was admitted through the ED on 03/17/19 for alcohol withdrawal. He drinks ~ 6-8 cans of 12oz beers daily,a nd says his last drink was ~ a few hours prior to admission. he has been admitted in the past for alcohol withdrawal but signed out AMA. Patient says he is tired of drinking and needs help quitting. On admission, BP was markedly elevated at 186/114, and respiratory rate of 20. Urine tox was negative and serum alcohol is pending. he is being admitted to be managed for acute alcohol withdrawal. ] Past Medical History Past Medical History (Chronic Problems): Chronic Problems (Last Reviewed 02/24/19 @ 03:55 by Tanvir Hammonds MD) Alcoholism (Chronic) Medical History: Medical History (Last Reviewed 02/24/19 @ 03:55 by Tanvir Hammonds MD) Alcoholism F10.20 Allergies iodine Allergy (Verified 03/17/19 12:47) Hives Surgical History: appendectomy, tonsillectomy Lives: With Family Smoking Status: Current every day smoker Tobacco Use: Cigarettes Drugs: Marijuana - *Family History Maternal History Items: - - Denies any maternal medical history Paternal History Items: - - Denies any pertinent medical history Review of Systems Constitutional: Reports: Malaise, Weakness, Fatigue. Denies: Chills, Fever, Weight Change Eyes: Denies: Blurred vision HEENT: Denies: Head Aches, Sinus Congestion, Sinus Drainage Cardiovascular: Denies: Chest Pain, Palpitations Respiratory: Denies: Cough, Shortness of Breath, Shortness of breath at rest, Sputum production Gastrointestinal: Denies: Abdominal Pain, Nausea, Vomiting Genitourinary: Denies: Dysuria Musculoskeletal: Denies: Joint Pain, Joint Tenderness Skin: Denies: Rash, Wounds Neurological: Denies: Numbness, Tingling, Focal weakness Psychiatric: Denies: Anxiety, Depression, Homicidal Ideations, Suicidal Ideations Hematologic/ Lymphatic: Denies: Easy Bruising, Easy Bleeding VTE Information - Inpt Only VTE Present on Admission: No VTE Pharm Prophylaxis ordered?: Yes - Physical Exam General: Alert, Oriented x3, Cooperative, No apparent distress, - - anxious HEENT: Atraumatic, PERRLA, EOMI, Normocephalic Oral: Dry Mucosa Neck: Supple, No JVD, Negative Carotid Bruits Lungs: Clear to auscultation, Normal air movement Cardiovascular: Regular rate, Regular Rhythm, Normal S1, Normal S2, No murmurs Abdomen: Bowel Sounds Present, Soft, Non Tender, Non-Distended, No Hepato- splenomegaly Extremities: No clubbing, No cyanosis, No edema, Capillary Refill Less than 3 Seconds Skin: No rashes, No breakdown Musculoskeletal: No Tenderness to Palpation of Joints or Extremities Lymphatic: No Cervical, Supraclavicular, or Inguinal Adenopathy Neurological: Cranial nerves II-XII grossly intact, Neuro grossly intact, Motor Exam 5/5 strength throughout Psych/Mental Status: Normal Affect, Appropriate, Alert and oriented to time, place, person, mood and affect Vital Signs Temp Pulse Resp BP Pulse Ox 97.9 F 99 20 H 186/114 H 96 03/17/19 12:43 03/17/19 12:43 03/17/19 12:43 03/17/19 12:43 03/17/19 12:43 Oxygen Delivery Method Room Air Weight: 182 lb 8.684 oz Body Mass Index (BMI) 24.0 Finger Stick Blood Glucose 91 Assessment/Plan All Active Problems (Last Reviewed 02/24/19 @ 03:55 by Tanvir Hammonds MD) Syncope and collapse (Acute) Agonal respiration (Acute) Alcohol intoxication (Acute) Avulsion of skin of face (Acute) 68 y/o male admitted for acute alcohol withdrawal 1. Acute alcohol withdrawal * admit to Med Surg with telemetry * urine tox was negative, and serum alcohol is pending * CBC and BMp are unremarkable, will check liver profile * start alcohol withdrawal protocol with ativan * check magnesium * monitor CIWA score * 2. Elevated BP: * no diagnosis of hypertension * BP was in 180s systolic on admission. * Doesnt have a history of hypertension. this may be due to withdrawal process. * IV hydralazine prn. * DVT prophylaxis: encourage ambulation. low risk Code Visit Inpatient E&M: 74978 Init Hosp L3
--- NOTE | 2019-03-17 13:24 | NURSING ---
DR HARTLEY IN ROOM
[2019-03-17 13:27] LABS: Absolute Lymphocyte Count 1.21 X10^3/uL (0.83-4.51); Absolute Neutrophil Count 3.8 X10^3/uL (2.0-7.7); Basophil# 0.02 X10^3/uL; Basophil% 0.4 % (0-1); Eosinophil# 0.01 X10^3/uL; Eosinophils% 0.2 % (0-5); Hematocrit 45.3 % (40-54); Hemoglobin 16.2 g/dL (13.0-16.5); Lymphocyte # 1.21 X10^3/ul (4.0); Lymphocyte % 21.9 % (19-41); Mean Corp Hgb Conc 35.8 g/dL (32-36); Mean Corpuscular Volume 89.5 fL (80-94); Monocyte# 0.43 X10^3/uL; Monocyte% 7.8 % (0-10); NRBC Flagged by Analyzer 0 % (0-5); Neutrophil # 3.84 X10^3/uL (2.7-7.7); Neutrophil % 69.5 % (47-70); Platelet Count 173 K/mm3 (150-450); RBC Distribution Width CV 11.7 % (11.6-14.6); RBC Distribution Width SD 37.9 fl (35.1-43.9); Red Blood Count 5.06 M/mm3 (4.6-6.2); White Blood Count 5.5 K/mm3 (4.4-11.0)
--- NOTE | 2019-03-17 13:27 | NURSING ---
MED SURG ALCOHOL DETOX KOR
[2019-03-17 13:38] LABS: Amphetamine Urine VISTA NEGATIVE (<1000 ng/mL); Barbiturate Urine VISTA NEGATIVE (< 200 ng/mL); Benzodiazepine Urine VISTA NEGATIVE (< 200 ng/mL); Cocaine Urine VISTA NEGATIVE (< 300 ng/mL); Ecstacy Urine VISTA NEGATIVE (< 500 ng/mL); Methadone Urine VISTA NEGATIVE (< 300 ng/mL); PCP Urine VISTA NEGATIVE (< 25 ng/mL); THC Urine VISTA NEGATIVE (< 50 ng/mL); Vista UDS pH Range 6
[2019-03-17 13:39] LABS: Anion Gap 8 (5-15); BUN 7 mg/dL (7-18); BUN/Creat Ratio 8.5 RATIO (10-20); Calcium,Total 8.1 mg/dL (8.5-10.1); Chloride 103 mmol/L (98-107); Creatinine, Serum 0.82 mg/dL (0.70-1.30); EST Glomerular Filtration Rate 99 mL/min (>60); Est Glom Filt Rate - Afr Amer 120 mL/min (>60); Estimated Creatinine Clearance 98.79 ml/min; Glucose 116 mg/dL (74-106); Potassium 3.7 mmol/L (3.5-5.1); Sodium Level 137 mmol/L (136-145)
--- NOTE | 2019-03-17 14:21 | EKG12_ITS ---
Test Reason : Blood Pressure : / mmHG Vent. Rate : 080 BPM Atrial Rate : 080 BPM P-R Int : 178 ms QRS Dur : 098 ms QT Int : 416 ms P-R-T Axes : 040 -17 037 degrees QTc Int : 479 ms Normal sinus rhythm Minimal voltage criteria for LVH, may be normal variant Borderline ECG Confirmed by DOROTHEA STOCKTON, BRADY ([id number]), brands editor GUSTAVO SOSA ([id number]) on 03/18/2019 2:59:06 PM Referred By: Confirmed By:BRADY PIEDRA MD
[2019-03-17 15:11] LABS: Magnesium 2.3 mg/dL (1.6-2.6)
[2019-03-17] MEDS: Thiamine Hydrochloride 100 MG Tablet PO (15:19)
[2019-03-17] MEDS: Folic Acid 1 MG Tablet PO (15:19)
[2019-03-17] MEDS: LORazepam 1 MG Tablet PO ×3 (15:19→23:51)
[2019-03-17] MEDS: LORazepam 1 MG Tablet 2 MG PO (16:37)
--- NOTE | 2019-03-17 17:12 | NURSING ---
Patient's wallet, [facility] care card, talent coordinator, 3 pieces nicotine gum, nasal spray locked in room med drawer.
[2019-03-17] MEDS: 0.9% Normal Saline 1,000 ML 125 ML IV (17:16)
[2019-03-18] VITALS (11 sets, daily range): BP systolic 126–151; BP diastolic 75–96; PULSE 69–104; RESP 14–20; TEMP 36.6–37.4; O2SAT 95–98
[2019-03-18] MEDS: 0.9% Normal Saline 1,000 ML 125 ML IV (01:21)
[2019-03-18] MEDS: LORazepam 1 MG Tablet PO ×5 (03:35→23:26)
[2019-03-18 06:00] LABS: Anion Gap 9 (5-15); BUN 12 mg/dL (7-18); BUN/Creat Ratio 13.1 RATIO (10-20); Chloride 107 mmol/L (98-107); Creatinine, Serum 0.92 mg/dL (0.70-1.30); EST Glomerular Filtration Rate 87 mL/min (>60); Est Glom Filt Rate - Afr Amer 106 mL/min (>60); Estimated Creatinine Clearance 88.05 ml/min; Glucose 101 mg/dL (74-106); Potassium 3.9 mmol/L (3.5-5.1); Sodium Level 142 mmol/L (136-145)
[2019-03-18 06:07] LABS: Absolute Neutrophil Count 3.9 X10^3/uL (2.0-7.7); Basophil# 0.02 X10^3/uL; Basophil% 0.4 % (0-1); Eosinophil# 0.04 X10^3/uL; Eosinophils% 0.8 % (0-5); Hematocrit 42.8 % (40-54); Hemoglobin 14.9 g/dL (13.0-16.5); Lymphocyte % 12.1 % (19-41); Mean Corp Hgb Conc 34.8 g/dL (32-36); Mean Corpuscular Hgb 32.1 pg (27.0-32.0); Mean Corpuscular Volume 92.2 fL (80-94); Mean Platelet Vol. 9.3 fl (6.2-12.0); Monocyte# 0.35 X10^3/uL; NRBC Flagged by Analyzer 0 % (0-5); Neutrophil # 3.94 X10^3/uL (2.7-7.7); Neutrophil % 79.3 % (47-70); POSITIVE DIFFERENTIAL YES; Platelet Count 129 K/mm3 (150-450); RBC Distribution Width CV 11.8 % (11.6-14.6); RBC Distribution Width SD 39.8 fl (35.1-43.9); Red Blood Count 4.64 M/mm3 (4.6-6.2)
[2019-03-18 06:09] LABS: Differential Indicated SCAN CRITERIA MET
[2019-03-18 06:32] LABS: Differential Comment SCANNED
[2019-03-18] MEDS: Fluticasone 0.05% 1 SPRAY NASAL.SRY 2 SPRAY NASAL ×2 (07:58→20:42)
[2019-03-18] MEDS: Multivitamins,Therapeutic Tablet 1 TABLET PO (07:59)
[2019-03-18] MEDS: Folic Acid 1 MG Tablet PO (07:59)
[2019-03-18] MEDS: Thiamine Hydrochloride 100 MG Tablet PO (07:59)
--- NOTE | 2019-03-18 10:35 | PCM.PN.HOSP ---
Subjective: Tremulous today, feels about the same as when he came in. Vitals/I&O's: Vital Signs Temp Pulse Resp BP Pulse Ox 98.8 F 69 14 126/79 H 95 03/18/19 07:47 03/18/19 07:47 03/18/19 07:47 03/18/19 07:47 03/18/19 07:47 Oxygen Delivery Method Room Air Weight: 177 lb 1.6 oz Body Mass Index (BMI) 23.3 Finger Stick Blood Glucose 91 Intake and Output for Last 24 Hours 03/16/19 03/17/19 03/18/19 23:59 23:59 23:59 Intake Total 1947 1244 / 1244 Balance 1947 1244 / 1244 General: Alert, Oriented x3, Cooperative, No apparent distress, - - Tremulous and anxious HEENT: Atraumatic, PERRLA, EOMI, Normocephalic Oral: Dry Mucosa Neck: Supple, No JVD Lungs: Clear to auscultation, Normal air movement, No rhonchi, No wheeze, No rales Cardiovascular: Regular rate, Regular Rhythm, Normal S1, Normal S2, No murmurs Abdomen: Soft, Non Tender, Non-Distended, No Hepato-splenomegaly Extremities: No edema, Capillary Refill Less than 3 Seconds Skin: No rashes, No breakdown Neurological: Neuro grossly intact, Sensory exam intact to light touch and pain Psych/Mental Status: Anxious, Restless Microbiology Past 72 Hours 03/17/19 18:00 Stool C. difficile DNA Amplification - Final Laboratory Results 03/17/19 13:15: WBC 5.5, RBC 5.06, Hgb 16.2, Hct 45.3, MCV 89.5, MCH 32.0, MCHC 35.8, RDW Std Deviation 37.9, RDW Coeff of Rachel 11.7, Plt Count 173, MPV 9.0, Immature Gran % (Auto) 0.200, Neut % (Auto) 69.5, Lymph % (Auto) 21.9, Bates % (Auto) 7.8, Eos % (Auto) 0.2, Baso % (Auto) 0.4, Absolute Neuts (auto) 3.8, Absolute Lymphs (auto) 1.21, Nucleated RBC % 0 03/17/19 13:15: Sodium 137, Potassium 3.7, Chloride 103, Carbon Dioxide 26.0, Anion Gap 8, BUN 7, Creatinine 0.82, Estim Creat Clear Calc 98.79, Est GFR (MDRD) Af Amer 120, Est GFR (MDRD) Non-Af 99, BUN/Creatinine Ratio 8.5 L, Glucose 116 H, Calcium 8.1 L 03/17/19 13:15: Ethyl Alcohol 402.0 H* 03/17/19 13:15: Urine Opiates Screen NEGATIVE, Urine Methadone Screen NEGATIVE, Ur Barbiturates Screen NEGATIVE, Ur Phencyclidine Scrn NEGATIVE, Ur Amphetamines Screen NEGATIVE, U Methamphetamin-MDMA NEGATIVE, U Benzodiazepines Scrn NEGATIVE, Urine Cocaine Screen NEGATIVE, U Cannabinoids Screen NEGATIVE, Ur Drug Screen Comment 03/17/19 13:20: Magnesium 2.3 03/18/19 05:12: WBC 5.0, RBC 4.64, Hgb 14.9, Hct 42.8, MCV 92.2, MCH 32.1 H, MCHC 34.8, RDW Std Deviation 39.8, RDW Coeff of Rachel 11.8, Plt Count 129 L, MPV 9.3, Immature Gran % (Auto) 0.400, Neut % (Auto) 79.3 H, Lymph % (Auto) 12.1 L, Bates % (Auto) 7.0, Eos % (Auto) 0.8, Baso % (Auto) 0.4, Absolute Neuts (auto) 3.9, Absolute Lymphs (auto) 0.60 L, Nucleated RBC % 0, Differential Comment SCANNED 03/18/19 05:12: Sodium 142, Potassium 3.9, Chloride 107, Carbon Dioxide 26.0, Anion Gap 9, BUN 12, Creatinine 0.92, Estim Creat Clear Calc 88.05, Est GFR (MDRD) Af Amer 106, Est GFR (MDRD) Non-Af 87, BUN/Creatinine Ratio 13.1, Glucose 101, Calcium 8.0 L Current Medications Fluticasone Propionate (Flonase Nasal [place]) 2 spray NASAL DAILY [facility] Last Admin: 03/18/19 07:58 Dose: 2 spray Documented by: [facility]) [facility] Stop: 03/19/19 08:01 Last Admin: 09/16/19 07:59 Dose: 1 mg Documented by: Glucagon () 1 mg IM .X1 PRN PRN Reason: Hypoglycemia Hydralazine HCl (Apresoline Iv) 10 mg IV Q6H PRN PRN PRN Reason: BLOOD PRESSURE ELEVATION Sodium Chloride () 250 mls @ 15 mls/hr IV .[id number] PRN PRN Reason: SALINE FLUSH Lorazepam (Ativan) 1 mg PO Q4H TIKA; Taper Stop: 03/20/19 19:59 Last Admin: 03/18/19 08:05 Dose: 1 mg Documented by: Lorazepam (Ativan) 2 mg PO Q2H PRN PRN; Protocol PRN Reason: CIWA score > 8 but <15 Lorazepam (Ativan) 2 mg PO UD PRN; Protocol PRN Reason: CIWA score >/=15. Last Admin: 03/17/19 16:37 Dose: 2 mg Documented by: Lorazepam (Ativan) 2 mg IV Q2H PRN PRN; Protocol PRN Reason: CIWA score > 8 but <15 Lorazepam (Ativan) 2 mg IV UD PRN; Protocol PRN Reason: CIWA score >/=15. Multivitamins (Multivitamin) 1 tablet PO DAILYCM [facility] Last Admin: 03/18/19 07:59 Dose: 1 tablet Documented by: Nicotine (Nicoderm Cq (Pbkc)) 7 mg TRANSDERM. DAILY [facility] Last Admin: 03/18/19 07:59 Dose: 7 mg Documented by: Non-Formulary Medication (Apremilast) 30 mg PO BID [facility] Sodium Chloride () 10 - 40 ml IV UD PRN PRN Reason: SALINE FLUSH Thiamine HCl (Vitamin B1) 100 mg PO DAILYCM [facility] Stop: 03/19/19 08:01 Last Admin: 03/18/19 07:59 Dose: 100 mg Documented by: Medical Necessity - Tobacco Use Smoking Status: Current every day smoker Tobacco Use: Cigarettes Assessment/Plan All Active Problems (Last Reviewed 02/24/19 @ 03:55 by Tanvir Hammonds MD) Syncope and collapse (Acute) Agonal respiration (Acute) Alcohol intoxication (Acute) Avulsion of skin of face (Acute) 1. Acute alcohol withdrawal/elevated BP -No diagnosis of hypertension therefore will not aggressively treat, he did resolve on his own secondary to withdrawal -Continue with alcohol withdrawal protocol -Monitor with CIWA scale DVT: Ambulation Code Visit Inpatient E&M: 44649 Subs Hosp L2
--- NOTE | 2019-03-18 16:45 | CASEMGMT ---
Social Work Spoke with patient about reason for admission - patient admits to alcoholism. Pt recently placed mother in a nursing facility as he was caring for her. Patient states he would like help in recovering. He is involved with the [place] and has complete programs at [place] [place] [facility] prior. Provided patient with alcohol counseling resources. Referrals made to treatment centers. SW will continue to follow. FAUSTINO GriderW
[2019-03-19 04:00] VITALS: BP 152/98; PULSE 81; RESP 16; TEMP 36.8; O2SAT 98
[2019-03-19 04:14] VITALS: PULSE 82
[2019-03-19] MEDS: Fluticasone 0.05% 1 SPRAY NASAL.SRY 2 SPRAY NASAL (05:49)
[2019-03-19] MEDS: LORazepam 1 MG Tablet PO ×3 (05:49→20:56)
[2019-03-19] MEDS: Thiamine Hydrochloride 100 MG Tablet PO (07:50)
[2019-03-19] MEDS: Folic Acid 1 MG Tablet PO (07:50)
[2019-03-19] MEDS: Multivitamins,Therapeutic Tablet 1 TABLET PO (07:50)
[2019-03-19 08:03] VITALS: PULSE 95
--- NOTE | 2019-03-19 08:34 | PN_ITS ---
Subjective: Chief complaint: Follow-up after admission for acute alcohol intoxication/withdrawal. Patient seen and examined. No acute events overnight. He mentioned that level of anxiety and shakiness is getting better. He has been sleeping overnight, no insomnia. He denied abdominal pain, nausea or vomiting. He feels better, blood pressure slightly elevated, other vital signs are stable. - Physical Exam General: Alert, Oriented x3, Cooperative, No apparent distress HEENT: Atraumatic, PERRLA, EOMI, Normocephalic Oral: Moist Mucosa, No Gingival or Mucosal Lesions/ Ulcerations Neck: Supple, No JVD, Negative Carotid Bruits, Trachea Midline, Thyroid Normal Size and Texture Lungs: Clear to auscultation, Normal air movement, No rhonchi, No wheeze, No rales, Diminished Cardiovascular: Regular rate, Regular Rhythm, Normal S1, Normal S2, PMI Normal Abdomen: Bowel Sounds Present, Soft, Non Tender, Non-Distended, No Hepato- splenomegaly Extremities: No clubbing, No cyanosis, No edema Skin: No rashes, No breakdown Lymphatic: No Cervical, Supraclavicular, or Inguinal Adenopathy Neurological: Cranial nerves II-XII grossly intact, Motor Exam 5/5 strength throughout Psych/Mental Status: Normal Affect, Appropriate, Alert and oriented to time, place, person, mood and affect Vital Signs Temp Pulse Resp BP Pulse Ox 98.2 F 82 16 152/98 H 98 03/19/19 04:00 03/19/19 04:14 03/19/19 04:00 03/19/19 04:00 03/19/19 04:00 Oxygen Delivery Method Room Air Weight: 177 lb 1.6 oz Body Mass Index (BMI) 23.3 Finger Stick Blood Glucose 91 Intake and Output for Last 24 Hours 03/17/19 03/18/19 03/19/19 23:59 23:59 23:59 Intake Total 1947 3224 / 3824 900 / 900 Balance 1947 3224 / 3824 900 / 900 Microbiology Past 72 Hours 03/17/19 18:00 C. difficile DNA Amplification - Final Stool Medical Necessity - Tobacco Use Smoking Status: Current every day smoker Tobacco Use: Cigarettes Assessment/Plan All Active Problems (Last Reviewed 02/24/19 @ 03:55 by Tanvir Hammonds MD) Alcohol intoxication (Acute) This is a 68 years old male patient presented to the emergency room requesting admission for acute alcohol intoxication withdrawal for detoxification. #1 acute alcohol intoxication/withdrawal: He is on tapering course of Ativan, on folic acid and thiamine supplement. Symptoms improved. Vital signs are stable except slightly with blood pressure. Denies any more shakiness or restlessness, feeling better. Plan to continue same treatment, DC home tomorrow morning. #2 COPD: Clinically stable, pulse ox is maintained on room air. Plan for albuterol as needed. #3 psoriasis: Stable, continue Otezla. #4 tobacco abuse: Continue NicoDerm patch. #5 DVT prophylaxis: Subcu Lovenox. This note was generated with [employer] dictation software. It may contain incorrect words, spelling, and punctuation that were not noted in checking the note before signing. Code Visit Inpatient E&M: 44367 Subs Hosp L2
[2019-03-19 11:08] VITALS: BP 141/90; PULSE 82; RESP 18; TEMP 36.9; O2SAT 96
[2019-03-19] MEDS: Enoxaparin 30 MG/0.3 ML Syringe SC (11:18)
--- NOTE | 2019-03-19 14:04 | CASEMGMT ---
Social Work Spoke with [facility] for alcohol treatment. Scheduled appointment 04/03/19 at 8:30 am for screening process. Spoke with patient to discuss alcohol treatment appointments. An appointment is scheduled at [facility] for treatment on 03/25 at 9:45 am. Patient will go to [facility] appt and will cancel [facility] appt if he chooses to proceed with [facility]. Appts and comments put into DC summary. Pt voiced no other concerns. FAUSTINO GriderW
[2019-03-19 16:10] VITALS: BP 121/86; PULSE 75; RESP 16; TEMP 37.1; O2SAT 97
[2019-03-19] MEDS: Loperamide 2 MG Capsule PO (16:57)
[2019-03-19 21:00] VITALS: BP 149/82; PULSE 83; RESP 18; TEMP 36.9; O2SAT 98
[2019-03-20 02:59] VITALS: BP 117/72; PULSE 80; RESP 20; TEMP 36.8; O2SAT 97
[2019-03-20] MEDS: LORazepam 1 MG Tablet PO (03:30)
[2019-03-20] MEDS: Enoxaparin 30 MG/0.3 ML Syringe SC (05:42)
[2019-03-20 08:15] VITALS: BP 127/82; PULSE 98; RESP 16; TEMP 37; O2SAT 99
--- NOTE | 2019-03-20 08:20 | PCM.DC ---
- Discharge Diagnoses Current Active Problems: Current Active and Chronic Problems (Last Reviewed 02/24/19 @ 03:55 by Tanvir Hammonds MD) Tobacco abuse (Chronic) COPD (chronic obstructive pulmonary disease) (Chronic) Psoriasis (Chronic) You will use the following diet at home:: Regular Your food should be the consistency of: Regular Discharge Activity: Return to Normal Activity Weight Bearing Status: Full weight bearing Call your doctor if you observe: Fever of 101 or Higher, Shortness of breath, Dizziness, Fainting spells, Chest pain, Increased palpitations (irregular heartbeat), Uncontrolled pain Instructions: Alcoholism: Getting Help, Alcoholism: How to be Part of the Solution, Recovering from Addiction: Continuing with Counseling, Recovering from Addiction: Coping with Relapse Allergies/Adverse Reactions: Allergies iodine Allergy (Verified 03/17/19 12:47) Hives Medications to take at Discharge Apremilast [Otezla] 30 mg PO BID 03/17/19 Fluticasone 0.05% [Flonase Nasal [place]] 1 spray NASAL ACHS PRN 03/19/19 Folic Acid 0.4 mg PO DAILY@0800 #30 tab 03/20/19 Multivitamins,Therapeutic [Multivitamin] 1 tab PO DAILYCM #30 tab 03/20/19 Thiamine HCl [Vitamin B-1] 100 mg PO DAILY #30 tab 03/20/19 The following prescriptions were given: Folic Acid 0.4 mg PO DAILY@0800 #30 tab Transmission Status: Pending to NATHAN BAUTISTA RD Multivitamins,Therapeutic [Multivitamin] 1 tab PO DAILYCM #30 tab Transmission Status: Pending to NATHAN ALLENCee BAUTISTA RD Thiamine HCl [Vitamin B-1] 100 mg PO DAILY #30 tab Transmission Status: Pending to NATHAN ALLENCee BAUTISTA RD Primary Care Physician: [facility] [Primary Care Provider] - Please follow up with your Primary Care Physician in: 2 weeks. Test Results: Test results from this visit will be discussed in further detail at your follow-up appointment, if applicable. Please Follow Up With: TREY,ONE When: Alcohol Treatment [facility]
--- NOTE | 2019-03-20 11:15 | DS.PCM_ITS ---
Discharge Date and Diagnosis Date of Admission: 03/17/19 Date of Discharge: 03/20/19 - Primary Discharge Diagnosis Acute alcohol intoxication/withdrawal. - Secondary Discharge Diagnosis Chronic Problems (Last Reviewed 02/24/19 @ 03:55 by Tanvir Hammonds MD) Tobacco abuse (Chronic) COPD (chronic obstructive pulmonary disease) (Chronic) Psoriasis (Chronic) Alcoholism (Chronic) Hospital Course and Treatment Operations: None Procedures: None Summary of Care Provided: Patient seen and examined on the day of discharge and appeared to be stable to be discharged home. He denies any more shakiness or restlessness. He slept well overnight. His vital signs are stable. The patient is a 68 year old M presented to the emergency room requesting admission for acute alcohol intoxication/withdrawal for detoxification. On admission, blood alcohol level was 402. Urine drug screen was negative. Routine blood work was unremarkable. Patient was admitted to the [facility] floor, started on alcohol withdrawal and detox protocol with tapering course of Ativan, vitamin supplements including folic acid and thiamine as well as multivitamins. In addition, patient complained of shakiness and restlessness as well as malaise and diarrhea. With treatment, patient symptoms improved. He denies any more shakiness or restlessness and he was able to sleep overnight. Patient was counseled to quit drinking and apparently, he is aware alcoholism complications and he is intending to quit drinking. Multivitamins, folate acid and thiamine supplement, started back on his home medications without any changes, plan to sign up with [facility] program as outpatient, recommended follow-up with PCP in 2 weeks. - Physical Exam General: Alert, Oriented x3, Cooperative, No apparent distress HEENT: Atraumatic, PERRLA, EOMI, Normocephalic Oral: Moist Mucosa, No Gingival or Mucosal Lesions/ Ulcerations Neck: Supple, No JVD, Negative Carotid Bruits, Trachea Midline, Thyroid Normal Size and Texture Lungs: Clear to auscultation, Normal air movement, No rhonchi, No wheeze, No rales, Diminished Cardiovascular: Regular rate, Regular Rhythm, Normal S1, Normal S2, PMI Normal Abdomen: Bowel Sounds Present, Soft, Non Tender, Non-Distended, No Hepato- splenomegaly Extremities: No clubbing, No cyanosis, No edema Skin: No rashes, No breakdown Lymphatic: No Cervical, Supraclavicular, or Inguinal Adenopathy Neurological: Cranial nerves II-XII grossly intact, Neuro grossly intact Psych/Mental Status: Normal Affect, Appropriate, Alert and oriented to time, place, person, mood and affect Vital Signs Temp Pulse Resp BP Pulse Ox 98.6 F 98 16 127/82 H 99 03/20/19 08:15 03/20/19 08:15 03/20/19 08:15 03/20/19 08:15 03/20/19 08:15 Oxygen Delivery Method Room Air Weight: 177 lb 1.6 oz Body Mass Index (BMI) 23.3 Finger Stick Blood Glucose 91 Intake and Output for Last 24 Hours 03/18/19 03/19/19 03/20/19 23:59 23:59 23:59 Intake Total 3224 / 3824 900 / 900 880 / 880 Balance 3224 / 3824 900 / 900 880 / 880 Microbiology Past 72 Hours 03/17/19 18:00 C. difficile DNA Amplification - Final Stool Discharge Activity: Return to Normal Activity Weight Bearing Status: Full weight bearing Call your doctor if you observe: Fever of 101 or Higher, Shortness of breath, Dizziness, Fainting spells, Chest pain, Increased palpitations (irregular heartbeat), Uncontrolled pain Home Medications: Medications to take at Discharge Apremilast [Otezla] 30 mg PO BID 03/17/19 Fluticasone 0.05% [Flonase Nasal [place]] 1 spray NASAL ACHS PRN 03/19/19 Folic Acid 0.4 mg PO DAILY@0800 #30 tab 03/20/19 Multivitamins,Therapeutic [Multivitamin] 1 tab PO DAILYCM #30 tab 03/20/19 Thiamine HCl [Vitamin B-1] 100 mg PO DAILY #30 tab 03/20/19 Following Prescrptions Were Given to Patient: Folic Acid 0.4 mg PO DAILY@0800 #30 tab Transmission Status: Received by NATHAN BAUTISTA RD Multivitamins,Therapeutic [Multivitamin] 1 tab PO DAILYCM #30 tab Transmission Status: Received by NATHAN BAUTISTA RD Thiamine HCl [Vitamin B-1] 100 mg PO DAILY #30 tab Transmission Status: Received by NATHAN BAUTISTA RD Primary Care Physician: [facility] [Primary Care Provider] - Please follow up with your Primary Care Physician in: 2 weeks. Please Follow Up With: TREY,ONE When: Alcohol Treatment Please Follow Up With: [facility] When: Alcohol Treatment Patient Instructions: Alcoholism: How to be Part of the Solution, Alcoholism: Getting Help, Recovering from Addiction: Continuing with Counseling, Recovering from Addiction: Coping with Relapse Disposition: Home Minutes spent on discharge:: 26 Patient Condition:: Stable Medical Necessity - Tobacco Use Smoking Status: Current every day smoker Tobacco Use: Cigarettes Meaningful Use Info Meaningful Use Diagnoses (Choose all that apply): None applicable Code Visit Inpatient E&M: 71177 Disch Hosp
== END 2019-03-20 09:11 | disposition home or self-care (01) | DRG 897 ==
LOC: ED 13:08 → MS3 14:14
PROVIDERS: Admitting Provider Student in an Organized Health Care Education/Training Program; Emergency Provider Emergency Medicine; Visit Provider Hospitalist
DX: F10.229 Alcohol dependence with intoxication, unspecified (principal); F10.239 Alcohol dependence with withdrawal, unspecified; J44.9 Chronic obstructive pulmonary disease, unspecified; L40.9 Psoriasis, unspecified; Y90.8 Blood alcohol level of 240 mg/100 ml or more; F17.210 Nicotine dependence, cigarettes, uncomplicated
CPT/HCPCS: 36415; 80048; 80307; 80320; 83735; 85025; 87493; 93005; 97161; 97166; 97530; 97535; 99284; 99406; J7030; J7040; A4216; G0480

== ENCOUNTER 2019-03-26 15:53 | Inpatient (IN) | payer MEDICARE, OTHER, SELFPAY ==
[2019-03-17 14:30] VITALS: BMI 23.3
[2019-03-26 15:55] VITALS: BP 173/102; PULSE 108; RESP 20; TEMP 36.2; O2SAT 98; BMI 23.7
[2019-03-26] MEDS: 0.9% Normal Saline 1,000 ML 150 ML IV (16:50)
--- NOTE | 2019-03-26 16:56 | ED.DCSUM_ITS ---
- ER Visit Summary Date of Service: 03/26/19 Chief Complaint: [Request for detox from alcohol] History of Present Illness: The patient is a 68 M [presents to the emergency department requesting detox from alcohol. Patient states that he is an alcoholic and his public health aide told him that he could not help him until he detox from alcohol. Patient had several visits this month to this emergency department and has been admitted for detox. Patient states his last drink was about an hour ago. Patient states he drank 12 beers today. Patient denies any chest pain or shortness of breath. He denies any headache. He denies any illicit drug use. His recent illness.] Patient tells me he has not eaten in over 1 week. Physical Examination: [HEENT-PERRLA, EOMI. Cranial nerves II through XII grossly intact. TMs clear. Mucous membranes moist. No adenopathy. Cardiovascular-regular rate and rhythm without murmur or ectopy Lungs-clear to auscultation, chest wall stable without crepitus or subcu emphysema Abdomen-normoactive bowel sounds, soft, nontender, no rebound or rigidity, no peritoneal signs. Extremities-intact ?4, normal range of motion, normal pulses, atraumatic] Test Results: [CBC and CMP ordered and pending.] Emergency Department Course and Treatment: [Patient had an IV line established and he was given normal saline.] Treatment Plan: [Admit for detox from alcohol. Case was discussed with hospitalist.] Disposition: [Admit] Impression: [EtOH detox Alcohol intoxication] This note was generated with [employer] dictation software. It may contain incorrect words, spelling, and punctuation that were not noted in review of the chart prior to signing ED Disposition - Plan for ED Patient: [facility]errals: [facility] [Primary Care Provider] -
[2019-03-26 17:06] LABS: Absolute Lymphocyte Count 1.16 X10^3/uL (0.83-4.51); Basophil# 0.02 X10^3/uL; Basophil% 0.5 % (0-1); Eosinophil# 0.02 X10^3/uL; Eosinophils% 0.5 % (0-5); Hematocrit 43.3 % (40-54); Hemoglobin 15.5 g/dL (13.0-16.5); Lymphocyte # 1.16 X10^3/ul (4.0); Lymphocyte % 30.3 % (19-41); Mean Corp Hgb Conc 35.8 g/dL (32-36); Mean Corpuscular Hgb 32.6 pg (27.0-32.0); Monocyte# 0.61 X10^3/uL; Monocyte% 15.9 % (0-10); NRBC Flagged by Analyzer 0 % (0-5); Neutrophil # 1.99 X10^3/uL (2.7-7.7); Platelet Count 128 K/mm3 (150-450); RBC Distribution Width CV 12.5 % (11.6-14.6); RBC Distribution Width SD 41.1 fl (35.1-43.9); Red Blood Count 4.76 M/mm3 (4.6-6.2); White Blood Count 3.8 K/mm3 (4.4-11.0)
[2019-03-26 17:25] LABS: AST(SGOT) 60 U/L (15-37); Alanine Aminotransfer ALT/SGPT 80 U/L (16-61); Albumin, Serum 3.8 g/dL (3.2-5.0); Alkaline Phosphatase 100 U/L (45-117); Anion Gap 6 (5-15); BUN 6 mg/dL (7-18); BUN/Creat Ratio 8.2 RATIO (10-20); Calcium,Total 8.6 mg/dL (8.5-10.1); Chloride 107 mmol/L (98-107); Creatinine, Serum 0.73 mg/dL (0.70-1.30); EST Glomerular Filtration Rate 113 mL/min (>60); Est Glom Filt Rate - Afr Amer 137 mL/min (>60); Estimated Creatinine Clearance 81.01 ml/min; Glucose 93 mg/dL (74-106); Potassium 3.6 mmol/L (3.5-5.1); Protein, Total 7.8 g/dL (6.4-8.2); Sodium Level 142 mmol/L (136-145)
--- NOTE | 2019-03-26 17:32 | HP.PCM_ITS ---
Problem List (1) Alcohol withdrawal Status: Acute (2) Tobacco abuse Status: Chronic (3) COPD (chronic obstructive pulmonary disease) Status: Chronic (4) Psoriasis Status: Chronic (5) Alcoholism Status: Chronic (6) Alcohol intoxication Status: Acute History of Present Illness Date of Admission: 03/26/19 Chief Complaint: Alcohol withdrawal symptoms. The patient is a 68 year old M with recurrent history of alcohol withdrawal admission and ER visits, recent discharge on 03/20 for similar symptoms came to ER for withdrawal symptoms including shakings. Patient was told by his technical maintenance specialist to go to ER for detox. Patient last drink was in afternoon about an hour before coming to ER. He drinks 16 bottles of 12 ounces each beer every day. Patient denies any previous history of seizure, GI bleed. He denies any diarrhea. No chest pain or shortness of breath. He denies any substance use recently, last cocaine use was about more than 10 years ago. As per ER note, he has not eaten in 1 week. [] Past Medical History Past Medical History (Chronic Problems): Chronic Problems (Last Reviewed 02/24/19 @ 03:55 by Tanvir Hammonds MD) Tobacco abuse (Chronic) COPD (chronic obstructive pulmonary disease) (Chronic) Psoriasis (Chronic) Alcoholism (Chronic) Medical History: Medical History (Last Reviewed 02/24/19 @ 03:55 by Tanvir Hammonds MD) Alcoholism F10.20 Allergies iodine Allergy (Verified 03/26/19 15:55) Hives Home Medications: Ambulatory Orders Medication Instructions Recorded Apremilast [Otezla] 30 mg PO BID 03/17/19 Fluticasone 0.05% [Flonase Nasal 1 spray NASAL ACHS PRN 03/19/19 [place]] Folic Acid 0.4 mg PO DAILY@0800 #30 tab 03/20/19 Multivitamins,Therapeutic 1 tab PO DAILYCM #30 tab 03/20/19 [Multivitamin] Thiamine HCl [Vitamin B-1] 100 mg PO DAILY #30 tab 03/20/19 Surgical History: appendectomy, tonsillectomy Smoking Status: Current every day smoker - *Family History Maternal History Items: - - Denies any maternal medical history Paternal History Items: - - Denies any pertinent medical history Review of Systems Constitutional: Reports: Anorexia, Weakness, Fatigue HEENT: Denies: Head Aches, Sinus Congestion, Sinus Drainage Cardiovascular: Denies: Chest Pain, Palpitations Respiratory: Denies: Cough, Shortness of breath at rest, Sputum production Gastrointestinal: Reports: Nausea. Denies: Abdominal Pain, Constipation, Diarrhea, Hematemesis, Hematochezia, Melena, Vomiting Genitourinary: Denies: Dysuria, Frequency, Hematuria Musculoskeletal: Denies: Joint Pain, Joint Tenderness Skin: Denies: Rash, Wounds Neurological: Denies: Numbness, Tingling, Focal weakness Psychiatric: Denies: Anxiety, Depression, Homicidal Ideations, Suicidal Ideations Hematologic/ Lymphatic: Denies: Easy Bruising, Easy Bleeding VTE Information - Inpt Only VTE Present on Admission: No VTE Mechan Device Prophylaxis: None VTE Pharm Prophylaxis ordered?: Yes Patient Problems: Active and Suspected Problems (Last Reviewed 02/24/19 @ 03:55 by Tanvir Hammonds MD) Alcohol withdrawal (Acute) - Physical Exam General: Alert, Oriented x3, Cooperative HEENT: Atraumatic, PERRLA, EOMI, Normocephalic Oral: Dry Mucosa Neck: Supple, No JVD, Negative Carotid Bruits Lungs: Clear to auscultation, No rhonchi, No wheeze, No rales, Diminished - Air entry is diffusely diminished. COPD. Cardiovascular: Regular rate, Regular Rhythm, Normal S1, Normal S2, No murmurs Abdomen: Bowel Sounds Present, Soft, Non Tender, Non-Distended Extremities: No edema, Capillary Refill Less than 3 Seconds Skin: No rashes, No breakdown Musculoskeletal: No Tenderness to Palpation of Joints or Extremities, Arthritic Changes Neurological: Cranial nerves II-XII grossly intact, Deep Tendon Reflexes 2+/4 and Symmetrical, Neuro grossly intact, - - Generalized tremors all over the body. Mainly in hands Psych/Mental Status: Normal Affect, Appropriate Vital Signs Temp Pulse Resp BP Pulse Ox 97.2 F L 108 H 20 H 173/102 H 98 03/26/19 15:55 03/26/19 15:55 03/26/19 15:55 03/26/19 15:55 03/26/19 15:55 Oxygen Delivery Method Room Air Weight: 180 lb Body Mass Index (BMI) 23.7 Finger Stick Blood Glucose 91 Laboratory Tests Past 24 Hrs 03/26/19 03/26/19 03/26/19 16:32 16:45 16:45 WBC 3.8 L RBC 4.76 Hgb 15.5 Hct 43.3 MCV 91.0 MCH 32.6 H MCHC 35.8 RDW Std Deviation 41.1 RDW Coeff of Rachel 12.5 Plt Count 128 L MPV 9.0 Immature Gran % (Auto) 0.800 Neut % (Auto) 52.0 Lymph % (Auto) 30.3 [place] % (Auto) 15.9 H Eos % (Auto) 0.5 Baso % (Auto) 0.5 Absolute Neuts (auto) 2.0 Absolute Lymphs (auto) 1.16 Nucleated RBC % 0 Sodium 142 Potassium 3.6 Chloride 107 Carbon Dioxide 29.0 Anion Gap 6 BUN 6 L Creatinine 0.73 Estim Creat Clear Calc 81.01 Est GFR (MDRD) Af Amer 137 Est GFR (MDRD) Non-Af 113 BUN/Creatinine Ratio 8.2 L Glucose 93 Calcium 8.6 Total Bilirubin 0.50 GGT AST 60 H ALT 80 H Alkaline Phosphatase 100 Total Protein 7.8 Albumin 3.8 Globulin 4.0 Albumin/Globulin Ratio 1.0 Urine Opiates Screen Pending Urine Methadone Screen Pending Ur Barbiturates Screen Pending Ur Phencyclidine Scrn Pending Ur Amphetamines Screen Pending U Methamphetamin-MDMA Pending U Benzodiazepines Scrn Pending Urine Cocaine Screen Pending U Cannabinoids Screen Pending Ur Drug Screen Comment Ethyl Alcohol 03/26/19 03/26/19 17:15 17:15 WBC RBC Hgb Hct MCV MCH MCHC RDW Std Deviation RDW Coeff of Rachel Plt Count MPV Immature Gran % (Auto) Neut % (Auto) Lymph % (Auto) [place] % (Auto) Eos % (Auto) Baso % (Auto) Absolute Neuts (auto) Absolute Lymphs (auto) Nucleated RBC % Sodium Potassium Chloride Carbon Dioxide Anion Gap BUN Creatinine Estim Creat Clear Calc Est GFR (MDRD) Af Amer Est GFR (MDRD) Non-Af BUN/Creatinine Ratio Glucose Calcium Total Bilirubin GGT Pending AST ALT Alkaline Phosphatase Total Protein Albumin Globulin Albumin/Globulin Ratio Urine Opiates Screen Urine Methadone Screen Ur Barbiturates Screen Ur Phencyclidine Scrn Ur Amphetamines Screen U Methamphetamin-MDMA U Benzodiazepines Scrn Urine Cocaine Screen U Cannabinoids Screen Ur Drug Screen Comment Ethyl Alcohol Pending Assessment/Plan All Active Problems (Last Reviewed 02/24/19 @ 03:55 by Tanvir Hammonds MD) Alcohol withdrawal (Acute) Alcohol intoxication (Acute) The patient is a 68 year old M with recurrent history of alcohol withdrawal admission and ER visits, recent discharge on 03/20 for similar symptoms came to ER for withdrawal symptoms including shakings. Patient was told by his technical maintenance specialist to go to ER for detox. Patient last drink was in afternoon about an hour before coming to ER. He drinks 16 bottles of 12 ounces each beer every day. 1. Acute alcohol withdrawal: Patient is being admitted on [facility]. Alcohol level, GGT and urine tox ordered. Previous U tox was negative. Admitted as per the order set of alcohol withdrawal. Monitor CIWA score. Currently K is 3.6. Monitor electrolytes, magnesium and phosphorus. During previous admission, his alcohol level was 400 21U tox was negative. 2. Chronic alcoholic hepatitis: AST and ALT are elevated. 3. Hypertension: Blood pressure was also elevated during last time, systolic 180s. Currently 173/102. Unclear whether it is alcohol withdrawal related or has issues she will hypertension. Mild thrombocytopenia secondary to chronic alcohol use: Platelet count is 128K. DVT prophylaxis: On Lovenox 40 mg subcu daily. Laboratory Results 03/26/19 16:32: Urine Opiates Screen Pending, Urine Methadone Screen Pending, Ur Barbiturates Screen Pending, Ur Phencyclidine Scrn Pending, Ur Amphetamines Screen Pending, U Methamphetamin-MDMA Pending, U Benzodiazepines Scrn Pending, Urine Cocaine Screen Pending, U Cannabinoids Screen Pending, Ur Drug Screen Comment 03/26/19 16:45: WBC 3.8 L, RBC 4.76, Hgb 15.5, Hct 43.3, MCV 91.0, MCH 32.6 H, MCHC 35.8, RDW Std Deviation 41.1, RDW Coeff of Rachel 12.5, Plt Count 128 L, MPV 9.0, Immature Gran % (Auto) 0.800, Neut % (Auto) 52.0, Lymph % (Auto) 30.3, [place] % (Auto) 15.9 H, Eos % (Auto) 0.5, Baso % (Auto) 0.5, Absolute Neuts (auto) 2.0, Absolute Lymphs (auto) 1.16, Nucleated RBC % 0 03/26/19 16:45: Sodium 142, Potassium 3.6, Chloride 107, Carbon Dioxide 29.0, Anion Gap 6, BUN 6 L, Creatinine 0.73, Estim Creat Clear Calc 81.01, Est GFR (MDRD) Af Amer 137, Est GFR (MDRD) Non-Af 113, BUN/Creatinine Ratio 8.2 L, Glucose 93, Calcium 8.6, Total Bilirubin 0.50, AST 60 H, ALT 80 H, Alkaline Phosphatase 100, Total Protein 7.8, Albumin 3.8, Globulin 4.0, Albumin/Globulin Ratio 1.0 03/26/19 17:15: GGT Pending 03/26/19 17:15: Ethyl Alcohol Pending Code Visit Inpatient E&M: 78832 Init Hosp L3
[2019-03-26 17:39] LABS: GGTP 73 U/L (15-85)
[2019-03-26 17:53] LABS: Amphetamine Urine VISTA NEGATIVE (<1000 ng/mL); Barbiturate Urine VISTA NEGATIVE (< 200 ng/mL); Benzodiazepine Urine VISTA NEGATIVE (< 200 ng/mL); Cocaine Urine VISTA NEGATIVE (< 300 ng/mL); Ecstacy Urine VISTA NEGATIVE (< 500 ng/mL); Methadone Urine VISTA NEGATIVE (< 300 ng/mL); PCP Urine VISTA NEGATIVE (< 25 ng/mL); THC Urine VISTA NEGATIVE (< 50 ng/mL); Vista UDS pH Range 6
[2019-03-26 18:20] VITALS: BP 148/96; PULSE 87; RESP 18; TEMP 36.9; O2SAT 97
[2019-03-26 18:21] VITALS: BMI 23.7
[2019-03-26] MEDS: chlordiazePOXIDE 25 MG Capsule PO (18:53)
[2019-03-26] MEDS: 0.9% Normal Saline 1,000 ML 100 ML IV (18:54)
[2019-03-26 19:45] LABS: Prothrombin Time (Protime)PT. 12.8 SECONDS (11.7-14.9)
[2019-03-26 19:55] VITALS: BP 144/93; PULSE 89; RESP 18; TEMP 37; O2SAT 98
[2019-03-26 21:43] VITALS: PULSE 91
[2019-03-26] MEDS: hydrALAZINE 25 MG Tablet PO (21:43)
[2019-03-26] MEDS: traZODone 50 MG Tablet PO (21:43)
[2019-03-27] VITALS (8 sets, daily range): BP systolic 127–155; BP diastolic 74–93; PULSE 60–97; RESP 18; TEMP 36.6–37.4; O2SAT 97–99
[2019-03-27] MEDS: chlordiazePOXIDE 25 MG Capsule PO ×4 (01:29→20:38)
[2019-03-27] MEDS: 0.9% Normal Saline 1,000 ML 100 ML IV (04:57)
[2019-03-27] MEDS: hydrALAZINE 25 MG Tablet PO ×3 (06:02→21:58)
[2019-03-27 06:08] LABS: Absolute Lymphocyte Count 1.19 X10^3/uL (0.83-4.51); Basophil# 0.01 X10^3/uL; Basophil% 0.3 % (0-1); Eosinophil# 0.04 X10^3/uL; Eosinophils% 1.1 % (0-5); Hematocrit 39.8 % (40-54); Hemoglobin 13.6 g/dL (13.0-16.5); Lymphocyte # 1.19 X10^3/ul (4.0); Lymphocyte % 33.1 % (19-41); Mean Corp Hgb Conc 34.2 g/dL (32-36); Mean Corpuscular Hgb 31.7 pg (27.0-32.0); Mean Corpuscular Volume 92.8 fL (80-94); Mean Platelet Vol. 9.7 fl (6.2-12.0); Monocyte# 0.38 X10^3/uL; Monocyte% 10.6 % (0-10); NRBC Flagged by Analyzer 0 % (0-5); Neutrophil # 1.97 X10^3/uL (2.7-7.7); Neutrophil % 54.6 % (47-70); Platelet Count 103 K/mm3 (150-450); RBC Distribution Width CV 12.8 % (11.6-14.6); RBC Distribution Width SD 43.6 fl (35.1-43.9); Red Blood Count 4.29 M/mm3 (4.6-6.2); White Blood Count 3.6 K/mm3 (4.4-11.0)
[2019-03-27 06:26] LABS: Anion Gap 7 (5-15); BUN 7 mg/dL (7-18); BUN/Creat Ratio 10.2 RATIO (10-20); Calcium,Total 8.2 mg/dL (8.5-10.1); Chloride 108 mmol/L (98-107); Creatinine, Serum 0.69 mg/dL (0.70-1.30); EST Glomerular Filtration Rate 122 mL/min (>60); Est Glom Filt Rate - Afr Amer 147 mL/min (>60); Estimated Creatinine Clearance 81.01 ml/min; Glucose 73 mg/dL (74-106); Magnesium 1.9 mg/dL (1.6-2.6); Phosphorus 2.9 mg/dL (2.5-4.9); Sodium Level 140 mmol/L (136-145)
--- NOTE | 2019-03-27 07:08 | PN_ITS ---
Patient Problems: Active and Suspected Problems (Last Reviewed 02/24/19 @ 03:55 by Tanvir Hammonds MD) Alcohol withdrawal (Acute) Subjective: The patient is a 68-year-old male with a past medical history of alcohol dependence, tobacco dependence, COPD and psoriasis who presented to the emergency department at [facility] on 03/26/2019 complaining of shakes. He has had previous admissions to the hospital for ETOH withdrawal. The most recent admission was 03/17/19. He was discharged on 03/20 which is less than 2 weeks ago. He was intoxicated at the last admission with a Blood alcohol of 402. He has signed out AMA in the past when admitted for ETOH withdrawal per the H&P on 03/17/19. He told the ED doc that he had not eaten in a week. Ethyl alcohol level in the emergency department was 315 and the remainder of the tox screen was negative. He had an appt at 180 and missed the appt because he was drunk. [facility] ETOH rehab. In the past he was sent to an inpatient facility in [place] by the [facility] and stage III months. After discharge from that facility he started drinking again after only 3 months. 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 He has not been to AA in at least 10 years. He denies ever having an alcohol withdrawal seizure and also denies history of delirium tremens. He did fall recently when he was intoxicated and he has scratches on both lenses of his glasses and he broke his dentures. Trying to blame his drinking on the fact that other family members have problems and his is upset about this. - Physical Exam General: Alert, Oriented x3, Cooperative, No apparent distress, Well developed, Well nourished, - - mild tremors of the hands HEENT: Atraumatic, PERRLA, EOMI, Normocephalic Oral: Moist Mucosa Neck: Supple, No JVD, Negative Carotid Bruits Lungs: Clear to auscultation, No rhonchi, No wheeze, No rales Cardiovascular: Regular rate, Regular Rhythm, Normal S1, Normal S2, No murmurs, No Ectopic Activity, No rub noted, No Gallop Abdomen: Bowel Sounds Present, Soft, Non Tender, Non-Distended, - - No guarding with palpation Extremities: No clubbing, No cyanosis, No edema, Peripheral Pulses Normal Skin: No rashes Neurological: Cranial nerves II-XII grossly intact, Neuro grossly intact Psych/Mental Status: Normal Affect, Appropriate Vital Signs Temp Pulse Resp BP Pulse Ox 99.3 F H 71 18 129/76 H 97 03/27/19 01:21 03/27/19 06:02 03/27/19 01:21 03/27/19 01:21 03/27/19 01:21 Oxygen Delivery Method Room Air Weight: 180 lb Body Mass Index (BMI) 23.7 Finger Stick Blood Glucose 91 Intake and Output for Last 24 Hours 03/25/19 03/26/19 03/27/19 23:59 23:59 23:59 Intake Total 482 / 482 1168.33 / 1168.33 Balance 482 / 482 1168.33 / 1168.33 Laboratory Tests Past 24 Hrs 03/26/19 03/26/19 03/26/19 16:32 16:45 16:45 WBC 3.8 L RBC 4.76 Hgb 15.5 Hct 43.3 MCV 91.0 MCH 32.6 H MCHC 35.8 RDW Std Deviation 41.1 RDW Coeff of Rachel 12.5 Plt Count 128 L MPV 9.0 Immature Gran % (Auto) 0.800 Neut % (Auto) 52.0 Lymph % (Auto) 30.3 [place] % (Auto) 15.9 H Eos % (Auto) 0.5 Baso % (Auto) 0.5 Absolute Neuts (auto) 2.0 Absolute Lymphs (auto) 1.16 Nucleated RBC % 0 PT INR Sodium 142 Potassium 3.6 Chloride 107 Carbon Dioxide 29.0 Anion Gap 6 BUN 6 L Creatinine 0.73 Estim Creat Clear Calc 81.01 Est GFR (MDRD) Af Amer 137 Est GFR (MDRD) Non-Af 113 BUN/Creatinine Ratio 8.2 L Glucose 93 Calcium 8.6 Phosphorus Magnesium Total Bilirubin 0.50 GGT AST 60 H ALT 80 H Alkaline Phosphatase 100 Total Protein 7.8 Albumin 3.8 Globulin 4.0 Albumin/Globulin Ratio 1.0 Urine Opiates Screen NEGATIVE Urine Methadone Screen NEGATIVE Ur Barbiturates Screen NEGATIVE Ur Phencyclidine Scrn NEGATIVE Ur Amphetamines Screen NEGATIVE U Methamphetamin-MDMA NEGATIVE U Benzodiazepines Scrn NEGATIVE Urine Cocaine Screen NEGATIVE U Cannabinoids Screen NEGATIVE Ur Drug Screen Comment Ethyl Alcohol 03/26/19 03/26/19 03/26/19 17:15 17:15 18:37 WBC RBC Hgb Hct MCV MCH MCHC RDW Std Deviation RDW Coeff of Rachel Plt Count MPV Immature Gran % (Auto) Neut % (Auto) Lymph % (Auto) [place] % (Auto) Eos % (Auto) Baso % (Auto) Absolute Neuts (auto) Absolute Lymphs (auto) Nucleated RBC % PT 12.8 INR 1.0 Sodium Potassium Chloride Carbon Dioxide Anion Gap BUN Creatinine Estim Creat Clear Calc Est GFR (MDRD) Af Amer Est GFR (MDRD) Non-Af BUN/Creatinine Ratio Glucose Calcium Phosphorus Magnesium Total Bilirubin GGT 73 AST ALT Alkaline Phosphatase Total Protein Albumin Globulin Albumin/Globulin Ratio Urine Opiates Screen Urine Methadone Screen Ur Barbiturates Screen Ur Phencyclidine Scrn Ur Amphetamines Screen U Methamphetamin-MDMA U Benzodiazepines Scrn Urine Cocaine Screen U Cannabinoids Screen Ur Drug Screen Comment Ethyl Alcohol 315.0 H* 03/27/19 03/27/19 05:26 05:26 WBC 3.6 L RBC 4.29 L Hgb 13.6 Hct 39.8 L MCV 92.8 MCH 31.7 MCHC 34.2 RDW Std Deviation 43.6 RDW Coeff of Rachel 12.8 Plt Count 103 L MPV 9.7 Immature Gran % (Auto) 0.300 Neut % (Auto) 54.6 Lymph % (Auto) 33.1 [place] % (Auto) 10.6 H Eos % (Auto) 1.1 Baso % (Auto) 0.3 Absolute Neuts (auto) 2.0 Absolute Lymphs (auto) 1.19 Nucleated RBC % 0 PT INR Sodium 140 Potassium 4.0 Chloride 108 H Carbon Dioxide 25.0 Anion Gap 7 BUN 7 Creatinine 0.69 L Estim Creat Clear Calc 81.01 Est GFR (MDRD) Af Amer 147 Est GFR (MDRD) Non-Af 122 BUN/Creatinine Ratio 10.2 Glucose 73 L Calcium 8.2 L Phosphorus 2.9 Magnesium 1.9 Total Bilirubin GGT AST ALT Alkaline Phosphatase Total Protein Albumin Globulin Albumin/Globulin Ratio Urine Opiates Screen Urine Methadone Screen Ur Barbiturates Screen Ur Phencyclidine Scrn Ur Amphetamines Screen U Methamphetamin-MDMA U Benzodiazepines Scrn Urine Cocaine Screen U Cannabinoids Screen Ur Drug Screen Comment Ethyl Alcohol Medical Necessity - Tobacco Use Smoking Status: Current every day smoker Assessment/Plan All Active Problems (Last Reviewed 02/24/19 @ 03:55 by Tanvir Hammonds MD) Alcohol withdrawal (Acute) Alcohol intoxication (Acute) Impressions 1. Alcohol intoxication. Admitted to the hospital for the second time this month requesting detox. Plans on having his box car checker help him stop drinking and make up a program for him. I suspect this is futile and the only hope he has to stop drinking is an inpt residential facility. He drank immediately after leaving the hospital on the last admission. He was informed that we will place him on the alcohol withdrawal protocol at this time but if he does not follow up with the [facility] next week he will be turned away from the ED. D/W the SW in the ED and a plan is being formulated. His nurse, Joana, was in the room for the entire discussion. 2. ETOH dependence 3. Tobacco dependence -smoking cessation was advised. Will prescribe a nicotine patch while he is in the hospital and unable to smoke. 4. COPD 5. Psoriasis -on Otezla 6. DVT prophylaxis with Lovenox Code Visit Inpatient E&M: 01514 Subs Hosp L2
[2019-03-27] MEDS: Multivitamins,Therapeutic Tablet 1 TABLET PO (08:21)
[2019-03-27] MEDS: Thiamine Hydrochloride 100 MG Tablet PO (08:21)
[2019-03-27] MEDS: Folic Acid 1 MG Tablet PO (08:21)
--- NOTE | 2019-03-27 10:34 | CASEMGMT ---
Addendum entered by Nellie Brink 03/27/19 11:02: Per previous notes, pt's appointment with the [facility] is on [facility]/03/2019 at 8:30am Original Note: Social Work Note Pt is at [facility] for alcohol detox. Pt was at [facility] last week for alcohol detox. SW met with pt and introduced self and role at [facility]. Pt is alert and orientated x3. Pt confirms that he is at [facility] for alcohol detox. Pt states that he talked with his Linen Aide yesterday who recommended pt come to [facility] for detox. SW asked pt if he attended appointment with Sonia on 03/25/2019 as this appointment was arranged last week for pt. Pt states he didn't attend appointment. SW asked pt if there was a reason why he didn't attend the appointment. Pt states 'I guess I was too drunk. SW asked pt what led to him drinking once he discharged from [facility]. Pt states well I have a lot of stress. SW asked pt to elaborate on his stress. Pt states that he was taking care of his mom but he had to place her at [facility] and his mom has been at [facility] for a couple of weeks. Pt states that it is costing $6,000 for his mom to be at [facility] per month and his mom's mcc is only around $3,000 a month and pt only makes around $1,200 - 1,300 a month. Pt states I will probably have to sell the house. SW encouraged pt to call [facility] to discuss payment and to ask [facility] about having his mother apply for Medicaid. Pt states he will do so. Pt also states that his brother a year ago and his sister has terminal cancer and won't make it much longer. SW explored these life changes with pt and how those changes can lead to poor coping skills (drinking). SW explored feelings of stress and depression with pt. Pt states that he sometimes feels sad. Pt states that he called the suicide hotline the beginning of this month. Pt states they asked me if I had a plan or how I would do it and I didn't know. Pt states I didn't have a plan. SW asked pt about any current suicidal thoughts/plans/ideations. Pt denied any current suicidal thoughts/plans/ideations. SW asked pt about his support. Pt states that his Linen Aide is good support for him. Pt states that he has nieces and nephew that live close but they are busy. SW asked pt about his goals for himself and his future plans. 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 SW encouraged pt to call the court that he got his divorce through and ask for a copy. Pt states he will do so. SW asked pt about his discharge plans and specifically asked pt if he plans on going to his [facility] Appointment on 04/03/2019 for his initial assessment. Pt states he will attend the appointment and would like to get linked up through the VA for inpatient detox. Pt states that he has been to inpatient detox before stating about 2 years ago he attended a VA agency in [place], [place] and then about a month before that he went to that facility he was in a facility in [place] that the VA linked him up with. Pt states he does well with inpatient detox but once he gets back into the community he doesn't do well. JOHN spoke with pt about when a patient is in inpatient detox, there are people holding him accountable and giving him a schedule to follow and once he is out in the community there isn't really anyone holding him accountable and no schedule. Pt agrees with that that he does better when someone is holding him accountable and when he has a schedule. JOHN encouraged pt to attend the VA meeting on 04/03/2019 and then make sure the VA assists him with community care and support. SW informed pt that if the VA sends him to an inpatient detox facility then to again make sure that facility assists him with community arrangements before he is discharged back to the community. Pt states that he will do so and also states that his Linen Aide is assisting him with coming up with a game plan. JOHN spoke with pt about his Linen Aide being someone who can hold him accountable in the community as pt identified his Linen Aide as being supportive. Pt thanked this worker for speaking with him and denied any additional needs or concerns or resources at this time. Plan: Pt has an appointment with the [facility] on 04/03/2019 to complete initial assessment to get linked up with VA detox services. Pt has goals for himself and denied any current suicidal thoughts/plans/ideations. Nellie Brink SHIFT SUPERINTENDENT CAUSTIC CRESYLATE, GEOSCIENCES ASSOCIATE PROFESSOR
[2019-03-27] MEDS: traZODone 50 MG Tablet PO (22:00)
[2019-03-28] VITALS (7 sets, daily range): BP systolic 110–148; BP diastolic 72–80; PULSE 72–96; RESP 18; TEMP 36.4–37; O2SAT 95–99
[2019-03-28] MEDS: chlordiazePOXIDE 25 MG Capsule PO ×3 (06:37→21:47)
[2019-03-28] MEDS: hydrALAZINE 25 MG Tablet PO ×2 (06:37→13:58)
[2019-03-28] MEDS: Folic Acid 1 MG Tablet PO (08:02)
[2019-03-28] MEDS: Thiamine Hydrochloride 100 MG Tablet PO (08:02)
[2019-03-28] MEDS: Multivitamins,Therapeutic Tablet 1 TABLET PO (08:02)
[2019-03-28] MEDS: Enoxaparin 40 MG/0.4 ML Syringe SC (08:03)
--- NOTE | 2019-03-28 09:55 | PN_ITS ---
Patient Problems: Active and Suspected Problems (Last Reviewed 02/24/19 @ 03:55 by Tanvir Hammonds MD) Alcohol withdrawal (Acute) Subjective: All events of the past 24 hours been reviewed. Afebrile since admission Hemodynamically stable. Good oral intake See was score was a 4 this morning He denies nausea/vomiting. Continues to have tremors of his hands and upper extremities. No diaphoresis. No diarrhea. Has been ambulating in the halls. He though he would go home today because he only has mild tremors.....I explained his withdrawal SX are mild because we are providing him with medication to ease him through alcohol withdrawal. I recommended he complete the 72-hour detox. We discussed Antabuse and he kept changing the subject and told him the VA was going to give him shots. He plans on getting a program for ETOH abstention from his mechanical manufacturing engineer. Objective: PHYSICAL EXAM: GENERAL: alert, oriented X 3, Cooperative, NAD ORAL: moist mucosa, no mucosal lesions NECK: No JVD, supple, trachea midline LUNGS: CTA, symmetric chest expansion HEART: RRR, Normal S1 and S2, no rub, no gallop ABDOMEN: soft, NT, ND, BS present, no guarding with palpation EXTREMITIES: no edema, no cyanosis, no calf tenderness, mild tremors SKIN: No rashes, no breakdown NEUROLOGIC: no focal neurologic deficits PSYCH: appropriate, normal affect, pleasant - Physical Exam Vital Signs Temp Pulse Resp BP Pulse Ox 98 F 72 18 110/76 99 03/28/19 06:38 03/28/19 06:38 03/28/19 06:38 03/28/19 06:38 03/27/19 20:35 Oxygen Delivery Method Room Air Weight: 180 lb Body Mass Index (BMI) 23.7 Finger Stick Blood Glucose 91 Intake and Output for Last 24 Hours 03/26/19 03/27/19 03/28/19 23:59 23:59 23:59 Intake Total 482 / 482 2768.33 / 2768.33 300 / 300 Balance 482 / 482 2768.33 / 2768.33 300 / 300 Medical Necessity - Tobacco Use Smoking Status: Current every day smoker Assessment/Plan All Active Problems (Last Reviewed 02/24/19 @ 03:55 by Tanvir Hammonds MD) Alcohol withdrawal (Acute) Alcohol intoxication (Acute) Impressions 1. Alcohol intoxication. Admitted to the hospital for medical stabilization for ETOH withdrawal for the second time this month. He is very evasive when talking about his plans at [place]. Yesterday he told me that the [facility] is going to arrange for an inpatient alcohol rehab program for him and today he tells me that the [facility] is either going to give him pills or shots to keep him from drinking. He requested to be discharged today but I told him that he needs to complete 72 hours of medical stabilization and he will be discharged after that time. If he leaves prior to this he will need to go AMA. He also knows he will not be admitted a third time to [facility] for medical stabilization for alcohol withdrawal. 2. ETOH dependence 3. Tobacco dependence -smoking cessation was advised. Continue nicotine patch while he is in the hospital and unable to smoke. 4. COPD-lungs are clear to auscultation 5. Psoriasis -on Otezla 6. Leukopenia and thrombocytopenia-more likely than not secondary to toxic effects of EtOH on bone marrow. Recheck CBC in the a.m. 7. Mild transaminitis-CT scan of the abdomen and pelvis done in January 2019 showed a normal-appearing liver. 8. DVT prophylaxis with Lovenox Code Visit Inpatient E&M: 19571 Subs Hosp L2
[2019-03-28] MEDS: hydrOXYzine PAM 25 MG Capsule 50 MG PO (14:03)
[2019-03-28 18:26] LABS: Bedside Glucose 98 mg/dL (70-110)
[2019-03-28] MEDS: traZODone 50 MG Tablet PO (21:47)
[2019-03-29 01:55] VITALS: BP 150/85; PULSE 75; RESP 18; TEMP 36.9; O2SAT 99
[2019-03-29] MEDS: Fluticasone 0.05% 1 SPRAY NASAL.SRY NASAL (03:52)
[2019-03-29 06:14] VITALS: BP 112/66; PULSE 66; RESP 18; TEMP 36.4; O2SAT 97
[2019-03-29 06:19] VITALS: BP 112/66; PULSE 66
[2019-03-29 06:46] LABS: Hematocrit 40.7 % (40-54); Mean Corp Hgb Conc 34.4 g/dL (32-36); Mean Corpuscular Hgb 32.5 pg (27.0-32.0); Mean Corpuscular Volume 94.4 fL (80-94); Mean Platelet Vol. 10.3 fl (6.2-12.0); Platelet Count 108 K/mm3 (150-450); RBC Distribution Width CV 12.4 % (11.6-14.6); RBC Distribution Width SD 43.4 fl (35.1-43.9); Red Blood Count 4.31 M/mm3 (4.6-6.2); White Blood Count 6.5 K/mm3 (4.4-11.0)
[2019-03-29] MEDS: Multivitamins,Therapeutic Tablet 1 TABLET PO (08:40)
[2019-03-29] MEDS: Thiamine Hydrochloride 100 MG Tablet PO (08:40)
[2019-03-29] MEDS: chlordiazePOXIDE 25 MG Capsule PO (08:40)
[2019-03-29] MEDS: Folic Acid 1 MG Tablet PO (08:40)
[2019-03-29 10:17] VITALS: BP 119/72; PULSE 80; RESP 18; TEMP 36.7; O2SAT 99
--- NOTE | 2019-03-29 11:23 | DCINST_ITS ---
- Discharge Diagnoses Current Active Problems: Current Active and Chronic Problems (Last Reviewed 02/24/19 @ 03:55 by Tanvir Hammonds MD) Alcohol withdrawal (Acute) You will use the following diet at home:: No restrictions Your food should be the consistency of: Regular Your liquids should be the consistency of: Regular/Thin Discharge Activity: Return to Normal Activity Call your doctor if you observe: Fever of 101 or Higher, Fainting spells, Calf discomfort, Uncontrolled pain Instructions: Life After Combat: Coping with Alcohol Abuse, Understanding Alcoholism, Alcoholism: Myths and Facts Additional Instructions: 1. I suggest that you talk to your roll forming machine set up operator and [facility] Ask them to make sure that you get to thaT APPT.........EVEN IF YOU HAVE BEEN DRINKING you MUST go to this appt to get the buttermilk drier operator help you need. Stay away from friends who drink. Call your roll forming machine set up operator or a friend if you feel like taking a drink and ask for help. Get rid of ANY alcohol you may have in your house......take away temptation. Take care of yourself. You have done this is the past and stayed dry for 3 month......you can do this. Pending Tests on Discharge: none Allergies/Adverse Reactions: Allergies iodine Allergy (Verified 03/26/19 15:55) Hives Medications to take at Discharge Apremilast [Otezla] 30 mg PO BID 03/17/19 Fluticasone 0.05% [Flonase Nasal [place]] 1 spray NASAL ACHS PRN 03/19/19 Folic Acid 0.4 mg PO DAILY@0800 #30 tab 03/20/19 Multivitamins,Therapeutic [Multivitamin] 1 tab PO DAILYCM #30 tab 03/20/19 Thiamine HCl [Vitamin B-1] 100 mg PO DAILY #30 tab 03/20/19 Nicotine [Nicoderm] 14 mg TRANSDERM. DAILY #28 patch 03/29/19 The following prescriptions were given: Nicotine [Nicoderm] 14 mg TRANSDERM. DAILY #28 patch Prescription Printed Primary Care Physician: [facility] [Primary Care Provider] - Please follow up with your Primary Care Physician in: Apr 04 as scheduled. Test Results: Test results from this visit will be discussed in further detail at your follow- up appointment, if applicable. Proposed Discharge Date: 03/29/19
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
--- NOTE | 2019-04-01 17:26 | CASEMGMT ---
RN JAMARCUS Discharge Follow-Up Phone Call. Lace:??10 Strata: 3 Discharge Date:?03/29/19 Adm Dx:???ETOH W/D Attempted discharge follow-up phone call. No answer. Message left for pt to return call to [facility] RN JAMARCUS if he has any questions about the discharge instructions, medications, or follow-up appts. Phone number provided. Also made aware he can contact through this number as well. Desmond TOMLINSON RN CM
== END 2019-03-29 11:55 | disposition home or self-care (01) | DRG 897 ==
LOC: ED 16:56 → MS3 18:11
PROVIDERS: Admitting Provider Internal Medicine; Emergency Provider Emergency Medicine; Visit Provider Internal Medicine
DX: F10.239 Alcohol dependence with withdrawal, unspecified (principal); J44.9 Chronic obstructive pulmonary disease, unspecified; L40.9 Psoriasis, unspecified; F10.229 Alcohol dependence with intoxication, unspecified; K70.10 Alcoholic hepatitis without ascites; I10 Essential (primary) hypertension; D69.59 Other secondary thrombocytopenia; F17.200 Nicotine dependence, unspecified, uncomplicated; Y90.8 Blood alcohol level of 240 mg/100 ml or more
CPT/HCPCS: 36415; 80048; 80053; 80307; 80320; 82962; 82977; 83735; 84100; 85025; 85027; 85610; 99285; J7030; G0480; J3490

== ENCOUNTER 2019-04-06 18:29 | Emergency (ER) | payer MEDICARE, OTHER, SELFPAY ==
[2019-03-26 18:21] VITALS: BMI 23.7
[2019-04-06 18:30] VITALS: BP 119/77; PULSE 81; RESP 19; TEMP 36.4; O2SAT 97; BMI 25.0
--- NOTE | 2019-04-06 18:50 | ED.VIS.GEN ---
History of Present Illness Chief Complaint: ETOH Intox Informant: Patient Narrative: Patient is a 68-year-old male with history of alcohol abuse presenting with alcohol intoxication. Patient states that he drank 12x16 ounce Budweiser today. He states he is drink that daily for the past week since he was discharged from our hospital. Patient was admitted for alcohol detox. Patient states he now wants to be sober because his sister is in hospice and he wants to be sober for her . Patient denies any physical complaints. He denies any history of DTs. He states he does get a tremor if he does not drink but has never had a seizure. Past Medical History - Allergies and Home Meds Allergies/Adverse Reactions: Allergies iodine Allergy (Verified 03/26/19 15:55) [place] [facility]: [facility] [Primary [facility]] - Past Medical History: - - Alcohol abuse, psoriasis Surgical History: appendectomy, tonsillectomy Smoking Status: Current every day smoker - Family History Maternal Family History: Reports: - - Denies any maternal medical history Paternal Family History: Reports: - - Denies any pertinent medical history Review of Systems All systems negative except as indicated Psych: Reports: - - Alcohol abuse. Denies: Suicidal thoughts Physical Exam Vital Signs/Narrative: Vital Signs Temp Pulse Resp BP Pulse Ox 04/06/19 18:30 97.5 F L 81 19 H 119/77 97 Inital Vital Signs reviewed: Yes General: Well nourished, Well developed, No Acute Distress Head: Normocephalic, Atraumatic Eyes: Perrl, EOMI, - - Bilateral fatiguing horizontal nystagmus ENT: Moist mucous membranes, No rhinorrhea Neck: Supple, Nontender Cardiovascular: Regular rate, Regular rhythm, No murmurs Respiratory: No distress, CTA bilaterally, Chest nontender Abdomen: Soft, Nontender, Nondistended, Normal bowel sounds Back: Nontender, Normal Inspection Extremities: Nontender, No edema Skin: Normal color, Rash - Scattered rash consistent with psoriasis Neurological: Alert, Oriented x3, Cranial nerves II-XII grossly intact, Normal Strength, Normal Sensation, - - Slightly slurred speech Psychological: Normal affect, Normal Mood Diagnostic/Tx/Re-eval - Medical Decision Making Patient is evaluated for alcohol intoxication. He states he wants to quit drinking because his sister is dying and he wants to be sober for his . However, patient was discharged from inpatient alcohol detox 1 week ago and immediately started drinking. Patient does appear clinically intoxicated. He denies any homicidal or suicidal plans. He does not demonstrate any signs or symptoms of alcohol withdrawal at this time. As he was sober 1 week ago I do not think he is at risk of acute alcohol withdrawal at this time. Patient is encouraged to call his insurance to find an outpatient detox center if he decides. He is also counseled that it is safe for him to just stop drinking. Patient states that is what he was told when he was discharged as well. 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 Patient is counseled on signs and symptoms requiring return to the emergency room. Patient verbalizes agreement and understand this plan. Patient is ambulated in the emergency room and stable. Patient discharged home in stable and improved condition. ED Disposition - Plan for ED Patient: Disposition: Home or Assisted Living Diagnosis: Alcohol intoxication Instructions: Alcohol Intoxication Referrals: [facility] [STAFF PHYSICIAN] - Additional Instructions: If you do not feel like you can stop drinking on your own, please contact your insurance for list of available detox resources outpatient. You do not meet requirement for inpatient detox at this time. Return to the emergency room if you develop worsening confusion, agitation or seizures. It is very important for your health that you stop drinking.
[2019-04-06 19:43] VITALS: RESP 16
--- NOTE | 2019-04-06 19:44 | ED.RN ---
PATIENT LEFT WITHOUT RECEIVING DISCHARGE INSTRUCTIONS.
== END 2019-04-06 19:44 | disposition home or self-care (01) ==
PROVIDERS: Emergency Provider Emergency Medicine
DX: F10.129 Alcohol abuse with intoxication, unspecified (principal); Y90.9 Presence of alcohol in blood, level not specified; F17.200 Nicotine dependence, unspecified, uncomplicated
CPT/HCPCS: 99284

== ENCOUNTER 2019-04-08 13:27 | Emergency (ER) | payer MEDICARE, OTHER, SELFPAY ==
[2019-04-08 13:29] VITALS: BP 142/85; PULSE 101; RESP 18; TEMP 36.7; O2SAT 97; BMI 23.1
--- NOTE | 2019-04-08 15:06 | ED.VIS.GEN ---
History of Present Illness Chief Complaint: ETOH Intox Informant: Patient Narrative: Patient is a 68-year-old male with history of alcohol abuse and alcohol detox presenting with alcohol intoxication. Patient states he drank 2012 ounce Budweiser's today. He states that is normal for him. He states he is depressed because his sister is in hospice and is going to in a couple days. He states he wants to go to the but cannot go if he is intoxicated per the family. Patient states he needs to go to detox so he can be forced to stop drinking. Of note patient was seen at the [place] 5 days ago for the same complaint. In addition he was recently discharged from the hospital a week ago for alcohol detox. Patient immediately went home and started drinking again. Patient was seen for the same complaint 2 days ago by myself. Patient has no change in his complaints. He has no tremor or signs of withdrawal at this time. Past Medical History - Allergies and Home Meds Allergies/Adverse Reactions: Allergies iodine Allergy (Verified 04/08/19 13:29) Tyler Primary Care Physician: [facility] [STAFF PHYSICIAN] - [facility],[place] [Primary Care Provider] - Past Medical History: - - alcohol abuse Surgical History: appendectomy, tonsillectomy Smoking Status: Current every day smoker - Family History Maternal Family History: Reports: - - Denies any maternal medical history Paternal Family History: Reports: - - Denies any pertinent medical history Review of Systems All systems negative except as indicated Psych: Reports: Depression, - - alcohol abuse Physical Exam Vital Signs/Narrative: Vital Signs Temp Pulse Resp BP Pulse Ox 04/08/19 13:29 98.1 F 101 H 18 142/85 H 97 Inital Vital Signs reviewed: Yes General: Well nourished, Well developed, No Acute Distress Head: Normocephalic, Atraumatic Eyes: Perrl, EOMI ENT: Moist mucous membranes, No rhinorrhea Neck: Supple, Nontender Cardiovascular: Regular rate, Regular rhythm Respiratory: No distress, CTA bilaterally Abdomen: Soft, Nontender Back: Nontender, Normal Inspection Extremities: Nontender, No edema Skin: Normal color, Rash - Diffuse/scattered?consistent with psoriasis Neurological: Alert, Oriented x3, Cranial nerves II-XII grossly intact, Normal Strength, Normal Sensation, - - Normal gait Psychological: Normal affect, Normal Mood Diagnostic/Tx/Re-eval - Medical Decision Making Is evaluated for request for alcohol detox. Patient's not actively withdrawing from alcohol. He has a relatively normal neurologic exam. He is not tremulous or hypertensive. He admits to drinking 28 Budweiser's today. In addition, patient was detoxed a little over 1 week ago from our hospital. He immediately restarted drinking. [facility]. Patient states he will stop drinking on his own. Patient is counseled that he does not meet criteria for inpatient detox at this time. He is evaluated by social work who offered to set him up with an immediate eval at 180 but patient refuses. Patient is able to get a sober ride home with his machine operator transplanter. Patient and machine operator transplanter counseled on signs and symptoms of acute alcohol withdrawal and need to return to the emergency room. They verbalized agreement understand this plan. Patient discharged home in stable condition. ED Disposition - Plan for ED Patient: Disposition: Home or Assisted Living Diagnosis: Alcohol intoxication Instructions: Alcohol Intoxication [facility] - [facility] [STAFF PHYSICIAN] - Additional Instructions: Offered resources for detox today at [facility]. You declined these. Please make sure you [facility] with the [facility] for assistance with your alcohol dependency.
--- NOTE | 2019-04-08 16:13 | CM.ED ---
Social Work Consult: Substance Abuse Informant: Dr. Lake Met with patient in room. Introduced self as well as social media community manager role. Patient agreeable to meet with this social media community manager. Per Dr. Lake patient does not meet criteria for admission. Patient stating to have consumed 24 12 ounce cans of bubweiser today and that is what patient typically consumes in a day. Patient stating to start drinking alcohol as soon as patient wakes up in the mornings. Patient stating that patient sister is going to any day. Patient stating to have goal to be sober for patient sister's . This social media community manager able to discuss realistic goals with patient. Patient denies active suicidal thoughts or plan. Patient with multiple ED visits and hospitalization for ETOH abuse/detox. After reviewing patient chart it is noted that [facility] had [facility], patient stating to have attended the appointment and to plan to follow[facility] with the [facility]. Patient agreeable to this social media community manager contacting the [facility] about support. Tele[facility] call [facility] M[facility] with [facility] stating that tentative plan for patient is inpatient at the [facility] program but not until the first week of May. Zuhair stating to encourage patient to continue to follow up with [facility] counselors that patient is already established with that are assisting patient. This social media community manager communicating what Zuh[facility] is recommending to patient, patient voicing understanding and declining any further substance abuse services support. This social media community manager attempted to provide patient with information about local substance abuse support and AA meetings, patient declining to accept any resources. Patient municipal services managerSimeon here to provide transportation home for patient. All questions answered. Ben HARMON, IAN
[2019-04-08 16:58] VITALS: BP 139/84; PULSE 67; RESP 16; O2SAT 98
== END 2019-04-08 16:58 | disposition home or self-care (01) ==
PROVIDERS: Emergency Provider Emergency Medicine
DX: F10.129 Alcohol abuse with intoxication, unspecified (principal); F32.9 Major depressive disorder, single episode, unspecified; F17.200 Nicotine dependence, unspecified, uncomplicated
CPT/HCPCS: 99284

== ENCOUNTER 2019-04-13 00:38 | Emergency (ER) | payer MEDICARE, OTHER, SELFPAY ==
[2019-04-13] VITALS (7 sets, daily range): BP systolic 121–155; BP diastolic 64–99; PULSE 87–101; RESP 16–20; TEMP 36.9; O2SAT 94–99; BMI 24.3
--- NOTE | 2019-04-13 00:51 | EKG12_ITS ---
Test Reason : DYSRHYTHMIA Blood Pressure : / mmHG Vent. Rate : 091 BPM Atrial Rate : 091 BPM P-R Int : 164 ms QRS Dur : 092 ms QT Int : 404 ms P-R-T Axes : 040 -12 036 degrees QTc Int : 496 ms Sinus rhythm with Premature supraventricular complexes and with occasional Premature ventricular comp lexes Prolonged QT Abnormal ECG Confirmed by PRISCILLA STOCKTON, RODOLFO ([id number]), editor & co founder GUSTAVO SOSA ([id number]) on 04/17/2019 9:43:33 AM Referred By: TODD Confirmed By:MIGUELINA WELLS MD
[2019-04-13 00:59] LABS: Absolute Lymphocyte Count 1.39 X10^3/uL (0.83-4.51); Absolute Neutrophil Count 3.8 X10^3/uL (2.0-7.7); Basophil# 0.02 X10^3/uL; Basophil% 0.3 % (0-1); Eosinophil# 0.06 X10^3/uL; Hematocrit 43.8 % (40-54); Hemoglobin 15.1 g/dL (13.0-16.5); Lymphocyte # 1.39 X10^3/ul (4.0); Lymphocyte % 23.9 % (19-41); Mean Corp Hgb Conc 34.5 g/dL (32-36); Mean Corpuscular Hgb 32.5 pg (27.0-32.0); Mean Corpuscular Volume 94.4 fL (80-94); Mean Platelet Vol. 9.1 fl (6.2-12.0); Monocyte# 0.52 X10^3/uL; Monocyte% 8.9 % (0-10); NRBC Flagged by Analyzer 0 % (0-5); Neutrophil # 3.82 X10^3/uL (2.7-7.7); Neutrophil % 65.7 % (47-70); Platelet Count 125 K/mm3 (150-450); RBC Distribution Width CV 12.7 % (11.6-14.6); RBC Distribution Width SD 44.2 fl (35.1-43.9); Red Blood Count 4.64 M/mm3 (4.6-6.2); White Blood Count 5.8 K/mm3 (4.4-11.0)
[2019-04-13 01:12] LABS: Anion Gap 8 (5-15); BUN 7 mg/dL (7-18); Calcium,Total 8.5 mg/dL (8.5-10.1); Chloride 105 mmol/L (98-107); Creatinine, Serum 0.78 mg/dL (0.70-1.30); EST Glomerular Filtration Rate 106 mL/min (>60); Est Glom Filt Rate - Afr Amer 128 mL/min (>60); Estimated Creatinine Clearance 81.01 ml/min; Glucose 101 mg/dL (74-106); Potassium 3.6 mmol/L (3.5-5.1); Sodium Level 140 mmol/L (136-145)
--- NOTE | 2019-04-13 01:33 | ED.DCSUM_ITS ---
History of Present Illness Chief Complaint: Suicidal Informant: Patient, - - [employer] police Onset: Today Context: Sudden Onset Conflict: Family Timing: Continuous Current Severity: Moderate Maximum Severity: Severe Worsened by: Situational factors, Alcohol intoxication, - - Sister in hospice and expected to within the next several days Relieved by: Nothing Associated Symptoms: Depressed, Decreased Interest, Suicidal Thoughts, Easily distracted. Negative for: Decreased Concentration, Grandiosity, Flight of Ideas, Increased activity, Pressured Speech, Agitated, Angry, Hostile, Threatening, Confusion, Paranoia, Visual Hallucinations, Auditory Hallucinations Specific plan (suicidal thought): No plan Narrative: Patient is an elderly male who smokes and drinks daily. He admits to 2412 ounce cans of beer per day. He states his sister was diagnosed with cancer. They were unable to resect the entire tumor. She is undergone chemo and radiation. She is presently hospice. Her life expectancy is very short. He states this is his baby sister . States he is sad and has increased thoughts of hurting himself. He states he has had thoughts of harming himself since the [place] War. States this is a daily occurrence. Patient denies psychiatric history. Patient denies admission to any psychiatric facility. He did call the crisis line and told them that he is depressed and had thoughts of harming himself. He also expressed that he did not have a specific plan. He was brought to the hospital by [employer] and the officer sathish slipped him. - Past Medical History (1) Thrombocytopenia Status: Acute (2) Alcohol dependence Status: Chronic (3) COPD (chronic obstructive pulmonary disease) Status: Chronic (4) Psoriasis Status: Chronic (5) Tobacco abuse Status: Chronic Past Medical History - Allergies and Home Meds Allergies/Adverse Reactions: Allergies iodine Allergy (Verified 04/08/19 13:29) Hives Primary Care Physician: [facility],[place] [Primary Care Provider] - Surgical History: appendectomy, tonsillectomy Lives: Alone Smoking Status: Current every day smoker Alcohol: Heavy Drugs: None - Family History Maternal Family History: Reports: - - Denies any maternal medical history Paternal Family History: Reports: - - Denies any pertinent medical history Review of Systems General: Denies: Chills, Fever, Malaise, Sweats Eyes: Denies: Visual changes - bilaterally, Blurred Vision - bilaterally, Diplopia ENT: Denies: Bilateral ear pain, Rhinorrhea, Sore throat Cardiovascular: Denies: Chest pain, Palpitations Respiratory: Denies: Dyspnea, Cough, Dyspnea on exertion Gastrointestinal: Denies: Abdominal pain, Nausea, Vomiting, Diarrhea, Melena, Hematochezia Genitourinary: Denies: Dysuria, Hematuria, Frequency Musculoskeletal: Denies: Myalgias, Arthralgias, Neck pain, Back pain, Swelling, Extremity Pain, -, - Skin: Denies: Rash, Wounds Neurological: Denies: Headache, Weakness, Numbness Psych: Reports: Depression, Anxiety, Suicidal thoughts. Denies: Suicidal ideations Hematologic: Denies: Easy bruising, Easy bleeding Physical Exam Vital Signs/Narrative: Vital Signs Temp Pulse Resp BP Pulse Ox 04/13/19 00:38 98.4 F 93 18 155/99 H 94 Inital Vital Signs reviewed: Yes General: Well nourished, Well developed Head: Normocephalic, Atraumatic Eyes: Perrl, EOMI. Negative for: Pale conjunctiva, Scleral icterus ENT: Moist mucous membranes, No rhinorrhea, TM's clear Neck: Supple, Nontender Cardiovascular: Regular rate, Regular rhythm, No murmurs, Normal S1, Normal S2 Respiratory: No distress, CTA bilaterally, Chest nontender Abdomen: Soft, Nontender, Nondistended, Normal bowel sounds Rectal: Deferred Back: Nontender, Normal Inspection. Negative for: CVA tenderness Extremities: Nontender, No Edema. Negative for: Healed prior injuries Skin: Normal color, No rash, No Trauma. Negative for: Cyanosis, Diaphoresis, Jaundice Neurological: Alert, Oriented x3, Cranial nerves II-XII grossly intact, Normal Strength, Normal Sensation, Normal DTR. Negative for: Normal Gait Psych: Normal Appearance, Depressed, Suicidal thoughts. Negative for: Logical sequential goal directed thoughts, No suicidal or homicidal ideation, Irritable, Euphoric, Labile, Blunted Affect, Flat Affect, Restricted Affect, Pressured Speech, Poverty of Speech, Flight of Ideas, Incoherent thoughts, Homicidal thoughts, Hallucinations, Delusions, Paranoid Ideation, Limited Judgement - May be secondary to the fact the patient is intoxicated. Diagnostic/Tx/Re-eval Laboratory Results 04/13/19 04/13/19 04/13/19 00:55 00:55 00:55 WBC 5.8 RBC 4.64 Hgb 15.1 Hct 43.8 MCV 94.4 H MCH 32.5 H MCHC 34.5 RDW Std Deviation 44.2 H RDW Coeff of Rachel 12.7 Plt Count 125 L MPV 9.1 Immature Gran % (Auto) 0.200 Neut % (Auto) 65.7 Lymph % (Auto) 23.9 Carver % (Auto) 8.9 Eos % (Auto) 1.0 Baso % (Auto) 0.3 Absolute Neuts (auto) 3.8 Absolute Lymphs (auto) 1.39 Nucleated RBC % 0 Sodium 140 Potassium 3.6 Chloride 105 Carbon Dioxide 27.0 Anion Gap 8 BUN 7 Creatinine 0.78 Estim Creat Clear Calc 81.01 Est GFR (MDRD) Af Amer 128 Est GFR (MDRD) Non-Af 106 BUN/Creatinine Ratio 9.0 L Glucose 101 Calcium 8.5 Urine Opiates Screen Urine Methadone Screen Ur Barbiturates Screen Ur Phencyclidine Scrn Ur Amphetamines Screen U Methamphetamin-MDMA U Benzodiazepines Scrn Urine Cocaine Screen U Cannabinoids Screen Ur Drug Screen Comment Ethyl Alcohol 292.0 04/13/19 02:25 WBC RBC Hgb Hct MCV MCH MCHC RDW Std Deviation RDW Coeff of Rachel Plt Count MPV Immature Gran % (Auto) Neut % (Auto) Lymph % (Auto) Carver % (Auto) Eos % (Auto) Baso % (Auto) Absolute Neuts (auto) Absolute Lymphs (auto) Nucleated RBC % Sodium Potassium Chloride Carbon Dioxide Anion Gap BUN Creatinine Estim Creat Clear Calc Est GFR (MDRD) Af Amer Est GFR (MDRD) Non-Af BUN/Creatinine Ratio Glucose Calcium Urine Opiates Screen NEGATIVE Urine Methadone Screen NEGATIVE Ur Barbiturates Screen NEGATIVE Ur Phencyclidine Scrn NEGATIVE Ur Amphetamines Screen NEGATIVE U Methamphetamin-MDMA NEGATIVE U Benzodiazepines Scrn POSITIVE H Urine Cocaine Screen NEGATIVE U Cannabinoids Screen NEGATIVE Ur Drug Screen Comment Ethyl Alcohol Screen is positive for benzodiazepines. His med list was reviewed. He is on no benzodiazepine. Alcohol level is elevated at 292. This is consistent with the amount of beer he consumes per day. CBC is normal. Basic medical panel is unremarkable. - Rhythm Strip Rhythm Strip: Sinus Rhythm Rate: 88 Ectopy: PVC(s) - EKG Initial EKG Interpretation: Sinus Rhythm - Sinus rhythm with a ventricular rate of 91. There are supraventricular complexes noted as well as premature ventricular complexes. IA interval is 164 ms. QS duration is 92 ms. QT duration is 404 ms with a QTC of 496 ms. The QT is prolonged. The EKG is abnormal. With history of depression and suicidal thoughts for many years. Suspect this is secondary to the fact that his sister is dying. Also he is acutely intoxicated. Will obtain appropriate screening labs especially since he has history of bone marrow suppression to assess white count, platelet count and H&H. Also will assess liver enzymes and renal function. Alcohol level was obtained as well as tox screen. Plan is to reevaluate in the morning when he is no longer intoxicated and determine if he is appropriate for outpatient follow- up. He will need counseling. Laboratory studies were reviewed. Patient is clinically and legally intoxicated. Will reassess at 0630 to determine if he is appropriate for outpatient follow-up versus inpatient care. Patient was reassessed at 0550. He still has suicidal thoughts. He does not have a specific plan. His work-up reveals no medical illness or problems that would prohibit him seeking care in a psychiatric facility. ED Disposition - Plan for ED Patient: Diagnosis: Depression with suicidal ideation, Acute alcoholic intoxication in alcoholism (blood level 0.08-0.29) [facility] [[facility] Provider] -
[2019-04-13 03:09] LABS: Amphetamine Urine VISTA NEGATIVE (<1000 ng/mL); Barbiturate Urine VISTA NEGATIVE (< 200 ng/mL); Benzodiazepine Urine VISTA POSITIVE (< 200 ng/mL); Cocaine Urine VISTA NEGATIVE (< 300 ng/mL); Ecstacy Urine VISTA NEGATIVE (< 500 ng/mL); Methadone Urine VISTA NEGATIVE (< 300 ng/mL); PCP Urine VISTA NEGATIVE (< 25 ng/mL); THC Urine VISTA NEGATIVE (< 50 ng/mL); Vista UDS pH Range 6
[2019-04-13] MEDS: chlordiazePOXIDE 25 MG Capsule 50 MG PO (11:07)
--- NOTE | 2019-04-13 12:31 | ED.RN ---
REPORT AND BELONGINGS GIVEN TO [facility], PT STATUS UNCHANGED AT THIS TIME.
== END 2019-04-13 12:35 | disposition short-term general hospital (02) ==
PROVIDERS: Emergency Medicine; Emergency Provider Emergency Medicine
DX: F32.9 Major depressive disorder, single episode, unspecified (principal); R45.851 Suicidal ideations; F10.129 Alcohol abuse with intoxication, unspecified; F17.200 Nicotine dependence, unspecified, uncomplicated; J44.9 Chronic obstructive pulmonary disease, unspecified; L40.9 Psoriasis, unspecified
CPT/HCPCS: 80048; 80307; 80320; 85025; 93005; 99284; G0480

== ENCOUNTER 2019-06-21 18:53 | Emergency (ER) | payer MEDICARE, OTHER, SELFPAY ==
[2019-04-13 00:38] VITALS: BMI 24.3
[2019-06-21 18:54] VITALS: BP 128/90; PULSE 81; RESP 17; TEMP 36.1; O2SAT 99; BMI 24.8
--- NOTE | 2019-06-21 19:36 | ED.DCSUM_ITS ---
- ER Visit Summary Date of Service: 06/21/19 Chief Complaint: Suicidal ideation History of Present Illness: The patient is a 68 M presenting with suicidal ideation. Patient states that he wants to kill himself. He was drinking today and has been drinking heavily for the past 3 days. He called 911 stating that he wanted to kill himself. He has had thoughts of running in front of a truck. He states his mom is elderly and he is currently selling her house and under a lot of stress because he has no where to live. History of previous suicide attempt. Physical Examination: Vitals are stable. Patient is afebrile. Alert no acute distress. HEENT exam is unremarkable. Neck is supple. Lungs are clear and equal bilaterally. Heart is regular rate and rhythm. Abdomen is soft nontender nondistended. Extremities are unremarkable. Skin is warm and dry. No focal neurologic deficit. Depressed affect, suicidal ideation Remainder of exam is unremarkable. Emergency Department Course and Treatment: CBC, chemistries unremarkable. Tox positive for cannabinoids. Alcohol 299. Patient will be observed in the ED and reevaluated when sober. Disposition: Pending Impression: Suicidal ideation, alcohol intoxication This note was generated with [employer] dictation software. It may contain incorrect words, spelling, and punctuation that were not noted in review of the chart prior to signing ED Disposition - Plan for ED Patient: [facility] -
--- NOTE | 2019-06-21 19:40 | CM.ED ---
SOCIAL WORK CASE DISCUSSED WITH DR. LEÓN. PATIENT WITH SUICIDAL IDEATION OF WANTING TO RUN IN FRONT OF A TRUCK. PATIENT INTOXICATED. CRISIS TO ASSESS ONCE PATIENT MEDICALLY CLEARED. PLAN: PENDING CRISIS EVALUATION Larisa BURNETTE MSW, SOCK LINING STITCHER.
[2019-06-21 20:11] VITALS: RESP 18
[2019-06-21 20:30] LABS: Absolute Lymphocyte Count 1.93 X10^3/uL (0.83-4.51); Absolute Neutrophil Count 2.8 X10^3/uL (2.0-7.7); Basophil# 0.03 X10^3/uL; Basophil% 0.6 % (0-1); Eosinophil# 0.09 X10^3/uL; Eosinophils% 1.7 % (0-5); Hematocrit 48.8 % (40-54); Hemoglobin 16.9 g/dL (13.0-16.5); Lymphocyte # 1.93 X10^3/ul (4.0); Lymphocyte % 35.6 % (19-41); Mean Corp Hgb Conc 34.6 g/dL (32-36); Mean Corpuscular Hgb 31.5 pg (27.0-32.0); Mean Platelet Vol. 9.1 fl (6.2-12.0); Monocyte% 9.2 % (0-10); NRBC Flagged by Analyzer 0 % (0-5); Neutrophil # 2.84 X10^3/uL (2.7-7.7); Neutrophil % 52.3 % (47-70); Platelet Count 231 K/mm3 (150-450); RBC Distribution Width CV 12.5 % (11.6-14.6); RBC Distribution Width SD 41.4 fl (35.1-43.9); Red Blood Count 5.36 M/mm3 (4.6-6.2); White Blood Count 5.4 K/mm3 (4.4-11.0)
[2019-06-21 20:40] LABS: Anion Gap 5 (5-15); BUN 8 mg/dL (7-18); Calcium,Total 8.6 mg/dL (8.5-10.1); Chloride 110 mmol/L (98-107); Creatinine, Serum 0.89 mg/dL (0.70-1.30); EST Glomerular Filtration Rate 91 mL/min (>60); Est Glom Filt Rate - Afr Amer 110 mL/min (>60); Estimated Creatinine Clearance 91.02 ml/min; Glucose 86 mg/dL (74-106); Potassium 4.2 mmol/L (3.5-5.1); Sodium Level 142 mmol/L (136-145)
[2019-06-21 20:53] LABS: Amphetamine Urine VISTA NEGATIVE (<1000 ng/mL); Barbiturate Urine VISTA NEGATIVE (< 200 ng/mL); Benzodiazepine Urine VISTA NEGATIVE (< 200 ng/mL); Cocaine Urine VISTA NEGATIVE (< 300 ng/mL); Ecstacy Urine VISTA NEGATIVE (< 500 ng/mL); Methadone Urine VISTA NEGATIVE (< 300 ng/mL); PCP Urine VISTA NEGATIVE (< 25 ng/mL); THC Urine VISTA POSITIVE (< 50 ng/mL); Vista UDS pH Range 5
[2019-06-21 21:00] VITALS: RESP 16
[2019-06-21 22:00] VITALS: RESP 16
--- NOTE | 2019-06-21 22:47 | ED.RN ---
PT ASKED TO SPEAK WITH THIS RN. HE STATES THAT HE IS READY TO GO AND NO LONGER FEELING LIKE HE WANTS TO CAP HIMSELF. PT INFORMED HIS ALCOHOL LEVEL WAS TOO HIGH AND IT NEEDED TO COME DOWN BEFORE HE CAN BE REEVALUTED. PT WAS IRRITATED AND ASKED TO SPEAK TO THE DOCTOR. DR. LEÓN INFORMED OF PT REQUEST
[2019-06-21 23:00] VITALS: RESP 18
[2019-06-22] VITALS (9 sets, daily range): BP systolic 119–159; BP diastolic 79–88; PULSE 51–68; RESP 14–16; TEMP 36.9; O2SAT 95–96
== END 2019-06-22 12:53 ==
PROVIDERS: Emergency Medicine; Emergency Provider Emergency Medicine
DX: R45.851 Suicidal ideations (principal); F10.129 Alcohol abuse with intoxication, unspecified; Y90.9 Presence of alcohol in blood, level not specified; I10 Essential (primary) hypertension; Z79.899 Other long term (current) drug therapy; Z72.0 Tobacco use
CPT/HCPCS: 36415; 80048; 80307; 80320; 85025; 99284; G0480

== ENCOUNTER 2020-10-12 21:47 | Emergency (ER) | payer OTHER, MEDICARE, SELFPAY ==
[2020-10-12 21:49] VITALS: BP 173/99; PULSE 95; RESP 16; TEMP 36.7; O2SAT 98; BMI 24.4
--- NOTE | 2020-10-12 22:17 | ED.DCSUM_ITS ---
History of Present Illness Chief Complaint: Substance Abuse Informant: Patient Narrative: 70-year-old male presenting with chief complaint of feeling bad after smoking a joint with his son. He is unsure if it was laced with something. He states he feels better on arrival. He is not having any chest pain, palpitations, shortness of breath. He states he does drink a lot of alcohol but refrain from tell me how much. He states he is an everyday drinker and at the [place] wants him to detox. He is not interested in detox today. - Past Medical History (1) Alcohol intoxication Status: Chronic (2) Thrombocytopenia Status: Chronic (3) Alcohol dependence Status: Chronic (4) COPD (chronic obstructive pulmonary disease) Status: Chronic (5) Psoriasis Status: Chronic Past Medical History - Allergies and Home Meds Allergies/Adverse Reactions: Allergies iodine Allergy (Verified 10/12/20 21:54) Tyler Primary Care Physician: [facility],[place] [Primary Care Provider] - Prior records reviewed: Yes Past Medical History: - - Viewed in problem list Surgical History: appendectomy, tonsillectomy Smoking Status: Current every day smoker Alcohol: Heavy Drugs: Marijuana - Family History Maternal Family History: Reports: - - Denies any maternal medical history Paternal Family History: Reports: - - Denies any pertinent medical history Review of Systems General: Denies: Chills, Fever, Sweats Eyes: Denies: Visual changes - bilaterally, Diplopia ENT: Denies: Rhinorrhea, Sore throat Cardiovascular: Reports: Heart racing. Denies: Chest pain, Palpitations Respiratory: Denies: Dyspnea, Cough Gastrointestinal: Denies: Abdominal pain, Nausea, Vomiting, Diarrhea, Melena, Hematochezia Genitourinary: Denies: Dysuria, Hematuria, Frequency Musculoskeletal: Denies: Back pain, Extremity Pain Skin: Denies: Rash, Wounds Neurological: Denies: Headache, Weakness, Numbness Psych: Reports: Anxiety. Denies: Depression, Suicidal thoughts, Suicidal ideations Physical Exam Vital Signs/Narrative: Vital Signs Temp Pulse Resp BP Pulse Ox 10/12/20 21:49 98.1 F 95 16 173/99 H 98 Inital Vital Signs reviewed: Yes General: Well nourished, No Acute Distress Head: Normocephalic, Atraumatic Eyes: Perrl, EOMI ENT: Moist mucous membranes, No rhinorrhea Cardiovascular: Regular rate, Regular rhythm Respiratory: No distress, CTA bilaterally Extremities: Nontender, No edema Skin: Normal color, No rash. Negative for: Cyanosis, Diaphoresis Neurological: Alert, Oriented x3, Cranial nerves II-XII grossly intact Psychological: Normal affect, Normal Mood Diagnostic/Tx/Re-eval - Medical Decision Making 70-year-old male presenting for feeling bad after smoking a joint with his son. He states that he feels a lot better now. His vital signs are stable and he is afebrile. Patient states that he is an alcoholic but is not interested in detox. He refuses to have a work-up done at this point and does not want any lab work or imaging. He states he feels improved and just wants to go home. Although it is obvious that the patient has been drinking and smoked marijuana admittedly I believe he has the capacity to make this decision. He is alert and oriented x3. He states I feel stupid for calming. I again asked him if he did want detox and he said no. I would discharge patient in stable condition. Impression: 1. History of EtOH abuse 2. Marijuana abuse ED Disposition - Plan for ED Patient: Disposition: Home or Assisted Living Instructions: ED Alcohol Intoxication, ED Marijuana Abuse [facility]: [facility] [[facility] Provider[facility] -
== END 2020-10-12 22:41 | disposition home or self-care (01) ==
LOC: ED 22:38
PROVIDERS: Emergency Provider Student in an Organized Health Care Education/Training Program
DX: F12.10 Cannabis abuse, uncomplicated (principal); F10.10 Alcohol abuse, uncomplicated; J44.9 Chronic obstructive pulmonary disease, unspecified; F17.200 Nicotine dependence, unspecified, uncomplicated
CPT/HCPCS: 99284; J7030

== ENCOUNTER 2020-12-27 22:24 | Emergency (ER) | payer OTHER, MEDICARE, SELFPAY ==
[2020-12-27 22:25] VITALS: BP 176/104; PULSE 106; RESP 18; TEMP 36.9; O2SAT 96; BMI 24.4
[2020-12-27 22:56] LABS: Absolute Neutrophil Count 3.6 X10^3/uL (2.0-7.7); Basophil# 0.03 X10^3/uL; Basophil% 0.5 % (0-1); Eosinophil# 0.04 X10^3/uL; Eosinophils% 0.7 % (0-5); Hematocrit 44.5 % (40-54); Lymphocyte % 28.7 % (19-41); Mean Corpuscular Hgb 32.3 pg (27.0-32.0); Mean Corpuscular Volume 89.7 fL (80-94); Mean Platelet Vol. 8.9 fl (6.2-12.0); Monocyte# 0.57 X10^3/uL; Monocyte% 9.6 % (0-10); NRBC Flagged by Analyzer 0 % (0-5); Neutrophil # 3.57 X10^3/uL (2.7-7.7); Neutrophil % 60.2 % (47-70); Platelet Count 240 K/mm3 (150-450); RBC Distribution Width CV 12.1 % (11.6-14.6); RBC Distribution Width SD 40.1 fl (35.1-43.9); Red Blood Count 4.96 M/mm3 (4.6-6.2); White Blood Count 5.9 K/mm3 (4.4-11.0)
[2020-12-27 23:16] LABS: AST(SGOT) 43 U/L (15-37); Alanine Aminotransfer ALT/SGPT 51 U/L (16-61); Albumin, Serum 4.1 g/dL (3.2-5.0); Alkaline Phosphatase 107 U/L (45-117); Anion Gap 10 (5-15); BUN 6 mg/dL (7-18); BUN/Creat Ratio 6.9 RATIO (10-20); Calcium,Total 8.6 mg/dL (8.5-10.1); Chloride 104 mmol/L (98-107); Creatinine, Serum 0.87 mg/dL (0.70-1.30); EST Glomerular Filtration Rate 92 mL/min (>60); Est Glom Filt Rate - Afr Amer 112 mL/min (>60); Estimated Creatinine Clearance 90.56 ml/min; Glucose 93 mg/dL (74-106); Potassium 3.8 mmol/L (3.5-5.1); Protein, Total 8.1 g/dL (6.4-8.2); Sodium Level 139 mmol/L (136-145)
--- NOTE | 2020-12-27 23:22 | EDS_ITS ---
HPI History of Present Illness Chief Complaint: ETOH Intox Detail of Chief Complaint: Alcoholic, consumes 1616 ounce cans per day Informant: patient Onset/Context/Timing Onset: - (Since the [place] War) Context: Gradual Onset Timing: Continuous Current Severity: Severe Maximum Severity: Severe Worsened by: Abstinence Relieved by: Drinking Associated Symptoms Associated Symptoms: Shakes Narrative Narrative: Patient is a 70-year-old male who has consumed 1616 ounce cans of beer. He went to the store and bought an 8 pack. He put in the refrigerator. He presents because of concern for withdrawal and he has orange-colored urine. He denies fever, chills or night sweats. Denies headache. Denies visual, ocular auditory symptoms. No trouble with speech or swallowing. He denies chest pain, dyspnea exertion, orthopnea or PND. He denies shortness of breath. He denies nausea, vomiting or diarrhea. Nuys black or maroon-colored stool. He denies dysuria or frequency. He denies weight gain or weight loss. He states he was in detox approximately 1 [facility] ago at the [facility]. 2 to 3 years ago he was at [facility] and in their detox program. Prior similar symptoms: Yes Recent Illness/Hospitalization: No [facility] Medical History (Updated 12/28/20 @ 00:[address] Alex Mcclendon MD) Alcoholism Home Medications NK 12/27/20 [History Last Taken Unknown] Allergy/AdvReac Type Severity Reaction Status Date / Time iodine Allergy Hives Verified 12/27/20 22:27 Surgical History S/P appendectomy S/P tonsillectomy Social History (Updated 12/27/20 @ 23:[address] Alex Mcclendon MD) household members: none Smoking Status: Current every day smoker tobacco type: cigarettes alcohol intake: current alcohol intake frequency: 3 or more drinks per day substance use type: does not use ROS ROS ED Constitutional Constitutional ED: Denies chills, fever(s), subjective or sweats Eyes Eyes: Denies blurry vision, change in vision or diplopia ENT ENT ED: Denies ear pain, rhinorrhea or sore throat Cardiovascular Cardiovascular: Denies chest pain, orthopnea, palpitations, paroxysmal nocturnal dyspnea or racing heartbeat Respiratory/Chest Respiratory/Chest: Reports cough; Denies dyspnea, dyspnea on exertion, orthopnea, paroxysmal nocturnal dyspnea or sputum Gastrointestinal Gastrointestinal: Denies abdominal pain, diarrhea, melena, nausea or vomiting Genitourinary Genitourinary ED: Denies dysuria or urinary frequency Musculoskeletal Musculoskeletal: Denies arthralgias, back pain, myalgias or neck pain Integumentary Denies rash Neurologic Neurologic: Denies headache(s) or paresthesias Psychiatric Psychiatric: Denies depression Endocrine Endocrinology: Denies polydipsia, polyphagia or polyuria EXAM Physical Exam Const Vital Signs: 12/27/20 22:25 12/27/20 22:49 12/27/20 23:39 Temperature 98.4 F Temperature Source Temporal Pulse Rate 106 H Respiratory Rate 18 16 Blood Pressure 176/104 H Blood Pressure Mean 128 Pulse Ox 96 Oxygen Delivery Method Room Air Room Air Positive well nourished and well developed General Appearance ED: well developed, NAD and other Clinically patient is intoxicated. HEENT Reports TM's clear and moist mucous membranes Negative for trauma or tenderness Tympanic Membrane ED: Yes TM's clear Eyes PERRL and EOMs intact bilaterally Eyes Narrative: Nystagmus with lateral gaze is pronounced. General Eye ED: Yes scleral icterus; Negative for pale conjunctiva Neck no lymphadenopathy, supple and no JVD General: Negative for tenderness Chest Wall inspection of chest normal Resp normal respiratory effort and clear to auscultation bilaterally Cardio regular rhythm, S1 normal heart sound, S2 normal heart sound and no murmurs Rate: tachycardic GI normal to inspection, nondistended, normoactive bowel sounds, non-tender and non-distended Palpation: soft Back/Spine no CVA tenderness Extremity normal to inspection General Extremety ED: Negative for edema or tenderness General Extremity: Negative for edema Neuro oriented x3, CN's II-XII intact bilaterally and no sensory deficits noted Neuro Narrative: Patient's gait is slightly unsteady. DTRs are 1+ at the biceps, brachialis, triceps, patella and ankle. There is no clonus or Babinski sign noted right or left. Sensorium / Orientation: alert Motor Exam: strength 5/5 throughout Psych mental status grossly normal Skin no rashes or lesions noted and no wounds MDM MDM MDM Narrative Medical decision making narrative: Patient was asked several times if he would like to be admitted for detox. Patient states he does not want to go to the [facility] tomorrow drunk. Again he was asked if he wishes to [facility] tox from alcohol. Patient states he is current through detox several times. The addiction medicine order set was initiated. Presently it is my opinion that patient is intoxicated. Patient was told he cannot walk home if he is intoxicated. He states he would like an IV and get the vitamin IV. Patient was informed that this is not done any longer. Patient would like to go home. He does not want detox. Since patient does have a safe and reliable ride home he will be discharged. Lab Data Attestation: I reviewed the patient's lab results. Lab results narrative: CBC and differential are unremarkable. Comprehensive metabolic panel is unremarkable. Alcohol level is 286. This confirms my clinical suspicion that patient is intoxicated. Tox screen is negative. Labs: Laboratory Results - last 24 hr 12/27/20 12/27/20 12/27/20 22:45 22:45 22:45 WBC 5.9 RBC 4.96 Hgb 16.0 Hct 44.5 MCV 89.7 MCH 32.3 H MCHC 36.0 RDW Std Deviation 40.1 RDW Coeff of Rachel 12.1 Plt Count 240 MPV 8.9 Immature Gran % (Auto) 0.300 Neut % (Auto) 60.2 Lymph % (Auto) 28.7 [place] % (Auto) 9.6 Eos % (Auto) 0.7 Baso % (Auto) 0.5 Absolute Neuts (auto) 3.6 Absolute Lymphs (auto) 1.70 Nucleated RBC % 0 Sodium 139 Potassium 3.8 Chloride 104 Carbon Dioxide 25.0 Anion Gap 10 BUN 6 L Creatinine 0.87 Estim Creat Clear Calc 90.56 Est GFR (MDRD) Af Amer 112 Est GFR (MDRD) Non-Af 92 BUN/Creatinine Ratio 6.9 L Glucose 93 Calcium 8.6 Total Bilirubin 0.70 AST 43 H ALT 51 Alkaline Phosphatase 107 Total Protein 8.1 Albumin 4.1 Globulin 4.0 Albumin/Globulin Ratio 1.0 Urine Opiates Screen Urine Methadone Screen Ur Barbiturates Screen Ur Phencyclidine Scrn Ur Amphetamines Screen U Methamphetamin-MDMA U Benzodiazepines Scrn Urine Cocaine Screen U Cannabinoids Screen Ur Drug Screen Comment Ethyl Alcohol 286.0 12/27/20 23:40 WBC RBC Hgb Hct MCV MCH MCHC RDW Std Deviation RDW Coeff of Rachel Plt Count MPV Immature Gran % (Auto) Neut % (Auto) Lymph % (Auto) [place] % (Auto) Eos % (Auto) Baso % (Auto) Absolute Neuts (auto) Absolute Lymphs (auto) Nucleated RBC % Sodium Potassium Chloride Carbon Dioxide Anion Gap BUN Creatinine Estim Creat Clear Calc Est GFR (MDRD) Af Amer Est GFR (MDRD) Non-Af BUN/Creatinine Ratio Glucose Calcium Total Bilirubin AST ALT Alkaline Phosphatase Total Protein Albumin Globulin Albumin/Globulin Ratio Urine Opiates Screen NEGATIVE Urine Methadone Screen NEGATIVE Ur Barbiturates Screen NEGATIVE Ur Phencyclidine Scrn NEGATIVE Ur Amphetamines Screen NEGATIVE U Methamphetamin-MDMA NEGATIVE U Benzodiazepines Scrn NEGATIVE Urine Cocaine Screen NEGATIVE U Cannabinoids Screen NEGATIVE Ur Drug Screen Comment Ethyl Alcohol Discharge Plan Triage Chief Complaint: ETOH Intox ED Provider: Alex Mcclendon Dx/Rx/DC Orders Clinical Impression: Alcohol intoxication in active alcoholic without complication Instructions: ED Alcohol Abuse Prescriptions: No Action NK RF: 0 [facility] [Primary Care Provider] - Keep Tanna appointment Activity Restrictions/Additional Instructions: If you do change your mind regarding detox, do not hesitate to return. Disposition Disposition: Home, Self Care
[2020-12-27 23:39] VITALS: RESP 16
[2020-12-27 23:54] LABS: Amphetamine Urine VISTA NEGATIVE (<1000 ng/mL); Barbiturate Urine VISTA NEGATIVE (< 200 ng/mL); Benzodiazepine Urine VISTA NEGATIVE (< 200 ng/mL); Cocaine Urine VISTA NEGATIVE (< 300 ng/mL); Ecstacy Urine VISTA NEGATIVE (< 500 ng/mL); Methadone Urine VISTA NEGATIVE (< 300 ng/mL); PCP Urine VISTA NEGATIVE (< 25 ng/mL); THC Urine VISTA NEGATIVE (< 50 ng/mL); Vista UDS pH Range 6
[2020-12-28 00:18] VITALS: PULSE 76; RESP 20; O2SAT 98
== END 2020-12-28 00:19 | disposition home or self-care (01) ==
PROVIDERS: Emergency Provider Emergency Medicine
DX: F10.120 Alcohol abuse with intoxication, uncomplicated (principal); F17.210 Nicotine dependence, cigarettes, uncomplicated; Y90.8 Blood alcohol level of 240 mg/100 ml or more
CPT/HCPCS: 80053; 80307; 82077; 85025; 99283; A4216

== ENCOUNTER 2022-01-19 14:41 | Emergency (ER) | payer OTHER, SELFPAY ==
[2022-01-19 14:42] VITALS: BP 172/94; PULSE 98; RESP 16; TEMP 36.6; O2SAT 96; BMI 25.0
[2022-01-19 14:45] VITALS: BP 157/101; PULSE 95; RESP 16; TEMP 36.6; O2SAT 95
--- NOTE | 2022-01-19 15:26 | EX.ED.SAOD ---
HPI History of Present Illness Chief Complaint: ETOH Intox Informant: patient Narrative Narrative: Patient states that he was advised to come in by [facility] for evaluation. He admits to history of alcoholism. He states he knows he cannot keep doing this and [facility]. When asked him what he meant by this he states he just keeps drinking more more. When he has asked if he would like to go to our detox program he states no, he just wants to go back home. He at other times will mention that he thinks he is ready to go to detox again. His last drink was a couple hours ago. He states has been through multiple detox programs in the [facility]. He does not remember when the last program was. [facility] Medical History Alcoholism COPD (chronic obstructive pulmonary disease) Psoriasis Home Medications NK 12/27/20 [History Last Taken Unknown] Allergy/AdvReac Type Severity Reaction Status Date / Time iodine Allergy Hives Verified 01/19/22 14:45 Surgical History S/P appendectomy S/P tonsillectomy Social History household members: none Smoking Status: Current every day smoker tobacco type: cigarettes alcohol intake: current alcohol intake frequency: 3 or more drinks per day substance use type: does not use ROS ROS ED Constitutional Constitutional ED: Denies chills or fever(s) Eyes Eyes: Denies change in vision or discharge from eye(s) ENT ENT ED: Denies discharge from eye(s), rhinorrhea or sore throat Cardiovascular Cardiovascular: Denies chest pain or palpitations Respiratory/Chest Respiratory/Chest: Denies cough or dyspnea Gastrointestinal Gastrointestinal: Denies abdominal pain, diarrhea, nausea or vomiting Genitourinary Genitourinary ED: Denies difficulty urinating or dysuria Musculoskeletal Musculoskeletal: Denies back pain or extremity pain Integumentary Denies Abrasions or rash Neurologic Neurologic: Denies headache(s) or weakness Psychiatric Psychiatric: Denies anxiety or depression Allergic/Immunologic Allergic/Immunologic ED: Denies lip swelling or urticaria EXAM Physical Exam Const Vital Signs: 01/19/22 14:42 01/19/22 14:45 01/19/22 17:11 Temperature 98 F 98 F Temperature Source Temporal Temporal Pulse Rate 98 95 85 Respiratory Rate 16 16 16 Blood Pressure 172/94 H 157/101 H 164/89 H Blood Pressure Mean 120 119 114 Blood Pressure Source Monitor Blood Pressure Position Semi-Fowlers Blood Pressure Location Right Arm Pulse Ox 96 95 97 Oxygen Delivery Method Room Air Room Air Room Air Positive well nourished and well developed General Appearance ED: well developed HEENT Reports normocephalic and head/scalp atraumatic Eyes PERRL and EOMs intact bilaterally Neck supple Chest Wall inspection of chest normal and palpation of chest normal Resp normal respiratory effort and clear to auscultation bilaterally Cardio regular rate and regular rhythm GI normal to inspection, nondistended, normoactive bowel sounds Palpation: soft Back/Spine no CVA tenderness Extremity normal to inspection Neuro oriented x3 and no sensory deficits noted Sensorium / Orientation: alert Motor Exam: strength 5/5 throughout Psych mental status grossly normal Skin no rashes or lesions noted MDM MDM MDM Narrative Medical decision making narrative: Lab work for addiction medicine obtained. Patient given IV fluids. Lab Data Labs: Laboratory Results - last 24 hr 01/19/22 01/19/22 01/19/22 15:30 15:33 15:33 WBC 4.3 L RBC 5.05 Hgb 16.2 Hct 45.4 MCV 89.9 MCH 32.1 H MCHC 35.7 RDW Std Deviation 38.9 RDW Coeff of Rachel 11.9 Plt Count 243 MPV 8.7 Immature Gran % (Auto) 0.500 Neut % (Auto) 54.8 Lymph % (Auto) 31.7 [place] % (Auto) 12.0 H Eos % (Auto) 0.5 Baso % (Auto) 0.5 Absolute Neuts (auto) 2.4 Absolute Lymphs (auto) 1.37 Nucleated RBC % 0 Sodium 139 Potassium 3.9 Chloride 105 Carbon Dioxide 26.0 Anion Gap 8 BUN 8 Creatinine 0.77 Estim Creat Clear Calc 77.68 Est GFR (MDRD) Af Amer 128 Est GFR (MDRD) Non-Af 106 BUN/Creatinine Ratio 10.4 Glucose 95 Calcium 8.7 Total Bilirubin 0.60 AST 30 ALT 40 Alkaline Phosphatase 79 Total Protein 7.9 Albumin 3.9 Globulin 4.0 Albumin/Globulin Ratio 1.0 Urine Opiates Screen NEGATIVE Urine Methadone Screen NEGATIVE Ur Barbiturates Screen NEGATIVE Ur Phencyclidine Scrn NEGATIVE Ur Amphetamines Screen NEGATIVE MDMA (Ecstasy) Screen NEGATIVE U Benzodiazepines Scrn NEGATIVE Urine Cocaine Screen NEGATIVE U Cannabinoids Screen POSITIVE H Ur Drug Screen Comment Ethyl Alcohol 01/19/22 15:33 WBC RBC Hgb Hct MCV MCH MCHC RDW Std Deviation RDW Coeff of Rachel Plt Count MPV Immature Gran % (Auto) Neut % (Auto) Lymph % (Auto) [place] % (Auto) Eos % (Auto) Baso % (Auto) Absolute Neuts (auto) Absolute Lymphs (auto) Nucleated RBC % Sodium Potassium Chloride Carbon Dioxide Anion Gap BUN Creatinine Estim Creat Clear Calc Est GFR (MDRD) Af Amer Est GFR (MDRD) Non-Af BUN/Creatinine Ratio Glucose Calcium Total Bilirubin AST ALT Alkaline Phosphatase Total Protein Albumin Globulin Albumin/Globulin Ratio Urine Opiates Screen Urine Methadone Screen Ur Barbiturates Screen Ur Phencyclidine Scrn Ur Amphetamines Screen MDMA (Ecstasy) Screen U Benzodiazepines Scrn Urine Cocaine Screen U Cannabinoids Screen Ur Drug Screen Comment Ethyl Alcohol 272.0 Treatment and Re-Evaluation Narrative: Patient's lab work is largely unremarkable other than an alcohol level of 272. He is also positive for cannabinoids. At this time patient is continuing to deny desire for detox. He is requesting discharge to home. I advised him that he needs to have a sober ride. Nursing staff is calling a friend. He will be discharged with friend once we can verify safe transport. Discharge Plan Triage Chief Complaint: ETOH Intox ED Provider: Priscila Hoffmann Dx/Rx/DC Orders Clinical Impression: Alcohol intoxication Instructions: ED Alcohol Intoxication Prescriptions: No Action NK [facility] [Primary Care Provider] - As Needed Disposition Disposition: Home, Self Care
--- NOTE | 2022-01-19 15:39 | CM.ED ---
JOHN LOPEZ met with patient. [facility]. JOHN explained [facility] program to patient and patient voiced that he had been through programs for detox for the [place] but never at [facility]. Patient said that he didn't want to go to [facility]. Initially patient said that he wanted this repairer typewriter to sign me up for the [facility] detox program however, then patient said I just want to go home and take a nap. Patient then voiced he did not want to stay for detox as he wanted to go home. Munira FIGUEROA
[2022-01-19] MEDS: 0.9% Normal Saline 1,000 ML 150 ML IV (15:40)
[2022-01-19 15:59] LABS: Absolute Lymphocyte Count 1.37 X10^3/uL (0.83-4.51); Absolute Neutrophil Count 2.4 X10^3/uL (2.0-7.7); Basophil# 0.02 X10^3/uL; Basophil% 0.5 % (0-1); Eosinophil# 0.02 X10^3/uL; Eosinophils% 0.5 % (0-5); Hematocrit 45.4 % (40-54); Hemoglobin 16.2 g/dL (13.0-16.5); Lymphocyte # 1.37 X10^3/ul (0.83-4.51); Lymphocyte % 31.7 % (19-41); Mean Corp Hgb Conc 35.7 g/dL (32-36); Mean Corpuscular Hgb 32.1 pg (27.0-32.0); Mean Corpuscular Volume 89.9 fL (80-94); Mean Platelet Vol. 8.7 fl (6.2-12.0); Monocyte# 0.52 X10^3/uL; NRBC Flagged by Analyzer 0 % (0-5); Neutrophil # 2.37 X10^3/uL (2.7-7.7); Neutrophil % 54.8 % (47-70); Platelet Count 243 K/mm3 (150-450); RBC Distribution Width CV 11.9 % (11.6-14.6); RBC Distribution Width SD 38.9 fl (35.1-43.9); Red Blood Count 5.05 M/mm3 (4.6-6.2); White Blood Count 4.3 K/mm3 (4.4-11.0)
[2022-01-19 16:07] LABS: AST(SGOT) 30 U/L (15-37); Alanine Aminotransfer ALT/SGPT 40 U/L (16-61); Albumin, Serum 3.9 g/dL (3.2-5.0); Alkaline Phosphatase 79 U/L (45-117); Anion Gap 8 (5-15); BUN 8 mg/dL (7-18); BUN/Creat Ratio 10.4 RATIO (10-20); Calcium,Total 8.7 mg/dL (8.5-10.1); Chloride 105 mmol/L (98-107); Creatinine, Serum 0.77 mg/dL (0.70-1.30); EST Glomerular Filtration Rate 106 mL/min (>60); Est Glom Filt Rate - Afr Amer 128 mL/min (>60); Estimated Creatinine Clearance 77.68 ml/min; Glucose 95 mg/dL (74-106); Potassium 3.9 mmol/L (3.5-5.1); Protein, Total 7.9 g/dL (6.4-8.2); Sodium Level 139 mmol/L (136-145)
[2022-01-19 16:11] LABS: Amphetamine Urine VISTA NEGATIVE (<1000 ng/mL); Barbiturate Urine VISTA NEGATIVE (< 200 ng/mL); Benzodiazepine Urine VISTA NEGATIVE (< 200 ng/mL); Cocaine Urine VISTA NEGATIVE (< 300 ng/mL); Ecstacy Urine VISTA NEGATIVE (< 500 ng/mL); Methadone Urine VISTA NEGATIVE (< 300 ng/mL); PCP Urine VISTA NEGATIVE (< 25 ng/mL); THC Urine VISTA POSITIVE (< 50 ng/mL); Vista UDS pH Range 5
[2022-01-19 17:11] VITALS: BP 164/89; PULSE 85; RESP 16; O2SAT 97
== END 2022-01-19 17:49 | disposition home or self-care (01) ==
PROVIDERS: Emergency Provider Emergency Medicine; Visit Provider Emergency Medicine
DX: F10.129 Alcohol abuse with intoxication, unspecified (principal); J44.9 Chronic obstructive pulmonary disease, unspecified; F17.210 Nicotine dependence, cigarettes, uncomplicated
CPT/HCPCS: 80053; 80307; 82077; 85025; 96360; 96361; 99285

== ENCOUNTER 2023-01-03 14:33 | Emergency (ER) | payer MEDICARE, SELFPAY ==
[2023-01-03 14:34] VITALS: BP 139/84; PULSE 85; RESP 16; TEMP 36.2; O2SAT 97; BMI 26.4
== END 2023-01-03 14:40 | disposition left against medical advice (07) ==
LOC: ED 14:42
DX: Z53.21 Procedure and treatment not carried out due to patient leaving prior to being seen by health care provider (principal)
CPT/HCPCS: 99282